=== PATIENT | female | born 1955 | race American Indian/Alaskan Native ===

== ENCOUNTER → 2020-10-14 08:30 | Outpatient (CLI) | payer OTHER, SELFPAY ==
[2020-10-14 09:44] LABS: Add Manual Diff / Slide Review NO; Basophils Absolute Auto 0 /uL (0-100); Basophils Percent Auto 0.5 % (0-2); Eosinophils Absolute Auto 100 /uL (0-450); Eosinophils Percent Auto 2.2 % (2-4); Hematocrit 45.2 % (36-46); Hemoglobin 15.3 g/dL (12.0-16.0); Lymphocytes Absolute Auto 1200 /uL (1100-4500); Lymphocytes Percent Auto 24.4 % (25-40); Mean Corpuscular HGB Conc 33.9 % (30-36); Mean Corpuscular Hemoglobin 30.4 PG (26-34); Mean Corpuscular Volume 89.7 fL (80-100); Monocytes Absolute Auto 400 /uL (0-900); Monocytes Percent Auto 7.4 % (3-14); Neutrophils Absolute Auto 3300 /uL (1500-7000); Neutrophils Percent Auto 65.5 % (50-75); Platelet Count 233 X10^3/uL (150-400); Red Blood Cell Count 5.04 X10^6/uL (4.0-5.2); Red Cell Distribution Width 12.8 % (11.6-14.8); White Blood Cell Count 5.1 X10^3/uL (4.5-11.0)
[2020-10-14 09:59] LABS: Hemoglobin A1C% w Est Avg Glu 5.7 % (4.0-6.0)
[2020-10-14 10:33] LABS: BUN Creatinine Ratio 33.3 (6-22); Blood Urea Nitrogen 20 mg/dL (7-17); Calcium 9.5 mg/dL (8.4-10.2); Carbon Dioxide 28 mmol/L (22-32); Chloride 107 mmol/L (98-107); Cholesterol 214 mg/dL (140-199); Estimated Glomerular Filt Rate > 60.0 mL/min (>60); Glucose 110 mg/dL (80-110); HDL Cholesterol 52 mg/dL (40-60); HEMOLYSIS < 15 (0-50); LDL Cholesterol Calculated 113 mg/dL (<100); Potassium 4.2 mmol/L (3.4-5.1); Sodium 139 mmol/L (137-145); Triglycerides 247 mg/dL (35-150)
== END ==
PROVIDERS: PCP Family Medicine; Referring Provider Family Medicine; Visit Provider Family Medicine
DX: E78.5 Hyperlipidemia, unspecified (principal); I10 Essential (primary) hypertension; R73.03 Prediabetes
CPT/HCPCS: 36415; 80048; 80061; 83036; 85025

== ENCOUNTER → 2020-12-21 15:32 | Outpatient (CLI) | payer OTHER, SELFPAY ==
--- NOTE | 2020-12-21 15:33 | DI.US.S_ITS ---
PROCEDURE: US PERIPH VENOUS LOW EXTREM RT INDICATIONS: RIGHT LOWER LEG SWELLING AND PAIN TECHNIQUE: Real-time imaging, as well as color and pulse Doppler interrogation, were performed of the lower extremity deep veins from the inguinal ligament to the popliteal fossa. COMPARISON: None. FINDINGS: The common femoral, femoral and popliteal veins are normally compressible, and free of intraluminal thrombus. Color and pulse Doppler demonstrate normal phasic intraluminal flow. There is normal augmentation response to distal compression maneuver. IMPRESSION: Negative for deep venous thrombosis. Dictated by: Calvin Hubbard M.D. on 12/21/2020 at 15:32 Approved by: Calvin Hubbard M.D. on 12/21/2020 at 15:32
== END ==
PROVIDERS: PCP Family Medicine; Referring Provider Family Medicine; Visit Provider Family Medicine
DX: M79.661 Pain in right lower leg (principal); R60.0 Localized edema
CPT/HCPCS: 93971

== ENCOUNTER → 2021-02-03 10:38 | Outpatient (CLI) | payer OTHER, SELFPAY ==
--- NOTE | 2021-02-03 | DI.MG.S_ITS ---
BILATERAL DIGITAL SCREENING MAMMOGRAM 3D/2D WITH CAD: 02/03/2021 CLINICAL: Routine screening. Comparison is made to exams dated: 02/08/2019 mammogram, 01/22/2019 mammogram, 11/23/2017 mammogram, and 04/25/2017 mammogram - outside location. The tissue of both breasts is predominantly fatty. Current study was also evaluated with a Computer Aided Detection (CAD) system. There is a stable benign focal asymmetry in both breasts. There also are stable benign calcifications in both breasts. No significant masses, calcifications, or other findings are seen in either breast. There has been no significant interval change. IMPRESSION: BENIGN There is no mammographic evidence of malignancy. A 1 year screening mammogram is recommended. This exam was interpreted at Station ID: [id number]. NOTE: For mammograms, a report in lay terms will be sent to the patient. Approximately 15% of breast malignancies will not be visualized mammographically. In the management of a palpable breast mass, a negative mammogram must not discourage biopsy of a clinically suspicious lesion. Electronically Signed By: Rolando Smith acr/penrad:02/03/2021 11:32:14 letter sent: Normal Exam ACR BI-RADS Category 2: Benign Finding(s) 3342F
== END ==
PROVIDERS: PCP Family Medicine; Referring Provider Family Medicine; Visit Provider Family Medicine
DX: Z12.31 Encounter for screening mammogram for malignant neoplasm of breast (principal)
CPT/HCPCS: 77063; 77067

== ENCOUNTER → 2021-05-11 09:13 | Outpatient (CLI) | payer OTHER, SELFPAY ==
[2021-05-11 10:17] LABS: Cholesterol 205 mg/dL (140-199); HDL Cholesterol 49 mg/dL (40-60); LDL Cholesterol Calculated 116 mg/dL (<100); Triglycerides 201 mg/dL (35-150)
== END ==
PROVIDERS: PCP Family Medicine; Referring Provider Family Medicine; Visit Provider Family Medicine
DX: E78.5 Hyperlipidemia, unspecified (principal)
CPT/HCPCS: 36415; 80061

== ENCOUNTER 2021-07-10 08:00 | Observation (INO) | payer OTHER, SELFPAY ==
[2021-07-10] VITALS (22 sets, daily range): BP systolic 113–233; BP diastolic 59–106; PULSE 50–71; RESP 10–25; TEMP 36.2–37.3; O2SAT 95–100
--- NOTE | 2021-07-10 | DI.RAD.S_ITS ---
PROCEDURE: XR ABDOMEN 1V INDICATIONS: RIGHT STENT PLACEMENT TECHNIQUE: One view of the abdomen acquired. COMPARISON: [facility], CT, CT KIDNEY URETER BLADDER (KUB), 07/10/2021, 8:39. FINDINGS/IMPRESSION: Single spot fluoro view demonstrates a nephroureteral stent overlying the expected location of the right renal shadow. Dictated by: Omar Schaefer D.O. on 07/10/2021 at 12:16 Approved by: Omar Schaefer D.O. on 07/10/2021 at 12:19
[2021-07-10] MEDS: ONDANSETRON 4 MG/2 ML INJ IV ×3 (08:22→13:36)
--- NOTE | 2021-07-10 08:27 | DI.CT.S_ITS ---
PROCEDURE: CT KIDNEY URETER BLADDER (KUB) INDICATIONS: rt flank pain TECHNIQUE: Axial sections were acquired from the lung bases to the pubic symphysis. Coronal and sagittal reformats were performed. For radiation dose reduction, the following was used: automated exposure control, adjustment of mA and/or kV according to patient size. COMPARISON: None. FINDINGS: Image quality: Excellent. Lung bases: Unremarkable. Heart: No significant findings. URINARY: Right Kidney: There is perinephric inflammation. Moderate hydroureteronephrosis. Right Ureter: Moderate dilation. There is a 6 millimeter stone within the mid right ureter. Left Kidney: Unremarkable Left Ureter: No hydroureter. Bladder: Normal wall thickness. No stones. ABDOMEN: Liver: Unremarkable. Gallbladder: Unremarkable. Biliary ducts: Unremarkable. Pancreas: Unremarkable. Spleen: Unremarkable. Small splenule. Adrenal Glands: Unremarkable. Stomach and Bowel: Stomach, small bowel loops, and colon are unremarkable. Peritoneum: No abnormal intraperitoneal fluid. No free air. Ventral Wall: No hernia. Abdominal Nodes: No enlarged retroperitoneal or mesenteric lymph nodes. Vessels: Aorta and inferior vena cava are normal in size. PELVIS: Pelvic Organs: Unremarkable. Pelvic Nodes: Unremarkable. Miscellaneous: No inguinal hernias are seen. Bones: Multilevel degenerative changes of the spine and mild degenerative changes of the hips. Complete intervertebral disc space loss of L2 on L3. Grade 1 anterolisthesis of L4 on L5 and retrolisthesis of L5 on S1. IMPRESSION: Right-sided obstructing 6 millimeter calcification within the mid right ureter with resultant moderate hydroureteronephrosis and perinephric inflammation. Dictated by: Omar Schaefer D.O. on 07/10/2021 at 8:33 Approved by: Omar Schaefer D.O. on 07/10/2021 at 8:39
--- NOTE | 2021-07-10 08:28 | ED.ABDPAIN ---
HPI - Abdominal Pain General Chief Complaint: Abdominal Pain Stated Complaint: poss kidney stones vomitting Time Seen by Provider: 07/10/21 08:22 History of Present Illness HPI narrative: Patient here with . Complains of right abdominal and right flank pain. Patient states feels like another kidney stone. Started last night around 11:30 a.m.. She was hoping it would pass. History kidney stone surgeries in the past. Has not had a kidney stone in over a decade. No hematuria. No fever chills. Has nausea and vomiting. Has urinary frequency. Related Data Home Medications Medication Instructions Recorded Confirmed clobetasol 0.05 % topical cream 1 applictn TOP DAILY 06/24/20 12/16/20 hydrocortisone 2.5 % topical cream 1 applictn TOP BID PRN 06/24/20 12/16/20 ibuprofen 200 mg capsule 200 mg PO Q6H PRN 06/24/20 12/16/20 metronidazole 0.75 % topical cream 1 applictn TOP DAILY 06/24/20 12/16/20 multivitamin PO 06/24/20 12/16/20 nystatin 100,000 unit/gram topical 1 applictn TOP DAILY 06/24/20 12/16/20 powder (Nyamyc) potassium citrate PO 06/24/20 12/16/20 Previous Rx's Medication Instructions Recorded hydrochlorothiazide 25 mg tablet 25 mg PO DAILY #90 tab 01/05/21 ciprofloxacin HCl 250 mg tablet 250 mg PO BID #20 tab 07/10/21 tramadol 50 mg tablet 50 mg PO Q6H PRN #20 tab 07/10/21 Allergies Allergy/AdvReac Type Severity Reaction Status Date / Time codeine Allergy Mild Verified 07/10/21 08:36 latex Allergy Mild Verified 07/10/21 08:36 Latex, Natural Rubber Allergy Mild Verified 07/10/21 08:36 metformin [From Glucophage] Allergy Mild Verified 07/10/21 08:36 simvastatin Allergy Mild Verified 07/10/21 08:36 Sulfa (Sulfonamide Allergy Mild Verified 07/10/21 08:36 Antibiotics) weed pollen Allergy Mild Verified 07/10/21 08:36 morphine AdvReac Mild Vomiting Verified 07/10/21 08:36 Review of Systems Review of Systems Narrative: GENERAL: Denies chills, fatigue, malaise, fever, sweats. HEENT: Denies sinus pain, ear pain, sore throat RESPIRATORY: Denies dyspnea, cough CARDIOVASCULAR: Denies chest pain, palpitations GASTROINTESTINAL: Positive nausea, vomiting, positive flank and abdominal pain : Denies dysuria, positive frequency, denies hematuria MUSCULOSKELETAL: denies muscle or bony pain SKIN: Denies rash, skin lesions NEUROLOGIC: Denies weakness, numbness ROS Unobtainable: All systems reviewed & are unremarkable except as noted in HPI and below Patient History Medical History Chicken pox Chronic pain of right knee Eczema (~2009) Edema of left lower extremity Foot pain (~2012) Fractures (~2007) Hay fever (~2009) Hemorrhoid (~2007) History of recurrent ear infection Hyperlipidemia Hypertension (~2012) Iliotibial band syndrome, right leg Kidney stones (~2012) Measles Osteoarthritis Pain in right winn Paronychia Partial blindness Pelvic somatic dysfunction Pre-diabetes Restless leg syndrome Rosacea (~2006) Shingles Shoulder pain (~2011) Somatic dysfunction of lower extremity Staph infection (~2007) Systolic murmur (~11/2009) Surgical History Anesthesia History of foot surgery History of hand surgery (~2007) History of hysterectomy Family History Father Diabetes mellitus History of heart disease Hyperlipidemia Hypertension Mother No problems noted. Grandfather Gout Family/Other Mental health problem Social History household members: spouse Smoking Status: Never smoker alcohol intake: current substance use type: does not use Smoking Status: Never smoker Exam Narrative Exam Narrative: GENERAL: in no distress, not toxic not dyspneic HEAD: Normocephalic. EYES: Pupils equal round NECK: Trachea midline. CARDIOVASCULAR: Regular rate and rhythm without murmurs RESPIRATORY: Clear to auscultation. Breath sounds equal bilaterally. No wheezes, rales, or rhonchi. GASTROINTESTINAL: Abdomen soft, non-tender EXTREMITIES: No gross deformities. BACK: No flank tenderness. NEURO: AOx4. SKIN: Warm and dry PSYCH: Not anxious, is cooperative Initial Vital Signs Initial Vital Signs: Vital Signs Temperature 97.9 F 07/10/21 08:10 Pulse Rate 66 10/16/21 08:10 Respiratory Rate 25 H 07/10/21 08:10 Blood Pressure 233/106 H 07/10/21 08:10 Pulse Oximetry 100 07/10/21 08:10 Course Course Course Narrative: No new issues during course of stay. Pain controlled Decision to Admit Date: 07/10/21 Decision to Admit time: 10:09 Orders Ordered: ED Orders 07/10/21 08:05 Urine Culture Stat Urine Microscopic Stat 07/10/21 08:20 Complete Blood Count AUTO DIFF Stat Comprehensive Metabolic Panel Stat Lipase Stat 07/10/21 08:27 CT kidney ureter bladder (KUB) Stat 07/10/21 10:00 COVID19 -Nasal swab/Pre-Proc Stat Famotidine (Famotidine 20 Mg/2 Ml Vial) 20 mg IV NOW [facility] Last Admin: 07/10/21 11:44 Dose: 20 mg Documented by: JOSE F Lactated Ringer's (Lactated Ringers) 1,000 mls @ 42 mls/hr IV CONT [facility] Last Infusion: 07/10/21 14:25 Dose: 0 mls/hr Documented by: Infusion: 07/10/21 11:57 Dose: 0 mls/hr Documented by: JOSE F Admin: 07/10/21 11:37 Dose: 42 mls/hr Documented by: JOSE F Lactated Ringer's (Lactated Ringers) 1,000 mls @ 120 mls/hr IV [facility] Last Admin: 07/10/21 14:25 Dose: 120 mls/hr Documented by: MATT Ondansetron HCl (Ondansetron 4 Mg/2 Ml Inj) 4 mg IV NOW PRN PRN Reason: Nausea And Vomiting Last Admin: 07/10/21 13:36 Dose: 4 mg Documented by: MATT Discontinued Medications Belladonna Alkaloids/Opium (Belladonna/Opium Suppositories) 1 each AL NOW ONE Stop: 07/10/21 12:31 Last Admin: 07/10/21 12:31 Dose: 1 each Documented by: CHARU Hydromorphone HCl (Hydromorphone 1 Mg Inj) 0.5 mg IV NOW ONE Stop: 07/10/21 08:28 Last Admin: 07/10/21 08:40 Dose: 0.5 mg Documented by: JOSE F Hydromorphone HCl (Hydromorphone 0.5 Mg Inj) 0.5 mg IV NOW ONE Stop: 07/10/21 10:51 Last Admin: 07/10/21 10:57 Dose: 0.5 mg Documented by: JOSE F Sodium Chloride (Normal Saline 0.9%) 1,000 mls @ 1,000 mls/hr IV BOLUS ONE Stop: 07/10/21 09:26 Last Infusion: 07/10/21 10:13 Dose: 0 mls/hr Documented by: JOSE F Admin: 07/10/21 08:41 Dose: 1,000 mls/hr Documented by: JOSE F Ceftriaxone Sodium 2,000 mg/ (Sodium Chloride) 100 mls @ 200 mls/hr IV NOW ONE Stop: 07/10/21 10:09 Last Infusion: 07/10/21 10:57 Dose: 0 mls/hr Documented by: JOSE F Admin: 07/10/21 10:18 Dose: 200 mls/hr Documented by: JOSE F Metoclopramide HCl (Metoclopramide 10 Mg/2 Ml Inj) 10 mg IV NOW ONE Stop: 07/10/21 11:02 Last Admin: 07/10/21 11:37 Dose: 10 mg Documented by: JOSE F Metoclopramide HCl (Metoclopramide 10 Mg/2 Ml Inj) 10 mg IV NOW ONE Stop: 07/10/21 14:24 Ondansetron HCl (Ondansetron 4 Mg/2 Ml Inj) 4 mg IV NOW ONE Stop: 07/10/21 08:23 Last Admin: 07/10/21 08:22 Dose: 4 mg Documented by: JOSE F Ondansetron HCl (Ondansetron 4 Mg/2 Ml Inj) 4 mg IV NOW ONE Stop: 07/10/21 10:51 Last Admin: 07/10/21 10:57 Dose: 4 mg Documented by: JOSE F Promethazine HCl (Promethazine 25 Mg Tablet) 25 mg PO NOW ONE Stop: 07/10/21 13:33 Last Admin: 07/10/21 13:49 Dose: 25 mg Documented by: MATT Scopolamine (Scopolamine 1 Patch) 1 patch TOP NOW ONE Stop: 07/10/21 14:24 Reevaluation(s) Reevaluation #1: Patient and understand need to admit for surgery today. Has not eaten since yesterday. Time: 10:09 Reevaluation #2: Dr. Cordero and surgical team here to take patient to the OR, blood pressure improved at time transfer to the OR, blood pressure elevation when pain elevate. Consultations Consultation #1: Spoke with Dr. Cordero, urology. He will take patient to for today. Time: 10:00 Vital Signs Vital signs: Vital Signs - 8 hr 07/10/21 08:10 07/10/21 08:37 07/10/21 08:38 Temperature 97.9 F Pulse Rate 66 62 62 Respiratory Rate 25 H 18 Blood Pressure 233/106 H 167/77 H Pulse Oximetry 100 98 97 07/10/21 09:02 07/10/21 09:30 07/10/21 09:37 Temperature Pulse Rate 70 63 63 Respiratory Rate 15 Blood Pressure 137/71 Pulse Oximetry 96 96 97 07/10/21 10:00 07/10/21 10:30 07/10/21 11:00 Temperature Pulse Rate 58 L 63 60 Respiratory Rate 16 Blood Pressure 140/67 Pulse Oximetry 95 97 98 07/10/21 11:05 07/10/21 11:30 Temperature Pulse Rate 65 71 Respiratory Rate 17 18 Blood Pressure 161/77 H 172/81 H Pulse Oximetry 95 95 MDM - Abdominal Pain Differential Diagnosis Differential diagnosis: Likely abdominal pain, acute appendicitis, calculus of kidney and small bowel obstruction Lab Data Result diagrams: 07/10/21 08:20 07/10/21 08:20 Labs: Lab Results 07/10/21 07/10/21 07/10/21 Range/Units 08:05 08:20 08:20 WBC 13.1 H (4.5-11.0) X10^3/uL RBC 5.30 H (4.0-5.2) X10^6/uL Hgb 15.7 (12.0-16.0) g/dL Hct 47.3 H (36-46) % MCV 89.2 (80-100) fL MCH 29.7 (26-34) PG MCHC 33.3 (30-36) % RDW 13.0 (11.6-14.8) % Plt Count 274 (150-400) X10^3/uL Neut % (Auto) 86.5 H (50-75) % Lymph % (Auto) 9.4 L (25-40) % [place] % (Auto) 3.8 (3-14) % Eos % (Auto) 0.1 L (2-4) % Baso % (Auto) 0.2 (0-2) % Neut # (Auto) 03480 H (7654-9236) /uL Lymph # (Auto) 1200 (8793-9604) /uL [place] # (Auto) 500 (0-900) /uL Eos # (Auto) 0 (0-450) /uL Baso # (Auto) 0 (0-100) /uL Sodium 140 (137-145) mmol/L Potassium 4.1 (3.4-5.1) mmol/L Chloride 105 (98-107) mmol/L Carbon Dioxide 26 (22-32) mmol/L BUN 20 H (7-17) mg/dL Creatinine 0.59 (0.52-1.04) mg/dL Estimated GFR > 60.0 (>60) mL/min BUN/Creatinine Ratio 33.9 H (6-22) Glucose 143 H (80-110) mg/dL Calcium 9.9 (8.4-10.2) mg/dL Total Bilirubin 0.6 (0.2-1.3) mg/dL AST 36 (14-36) IU/L ALT 24 (<35) IU/L Alkaline Phosphatase 79 (38-126) U/L Total Protein 7.2 (6.3-8.2) g/dL Albumin 4.8 (3.5-5.0) g/dL Globulin 2.4 (1.7-4.1) g/dL Albumin/Globulin Ratio 2.0 (1.0-2.8) Lipase 96 (23-300) U/L Urine RBC 30-100/hpf H (0-5/HPF) Urine WBC 30-100/hpf H (0-5/HPF) Ur Squamous Epith Cells 1-5 /hpf (0-5/HPF) Urine Bacteria Moderate (10-30) H (None) Ur Culture Indicated? Specimen cultured SARS-CoV-2 (PCR) (Negative) 07/10/21 Range/Units 10:00 WBC (4.5-11.0) X10^3/uL RBC (4.0-5.2) X10^6/uL Hgb (12.0-16.0) g/dL Hct (36-46) % MCV (80-100) fL MCH (26-34) PG MCHC (30-36) % RDW (11.6-14.8) % Plt Count (150-400) X10^3/uL Neut % (Auto) (50-75) % Lymph % (Auto) (25-40) % [place] % (Auto) (3-14) % Eos % (Auto) (2-4) % Baso % (Auto) (0-2) % Neut # (Auto) (2581-3921) /uL Lymph # (Auto) (2682-9225) /uL [place] # (Auto) (0-900) /uL Eos # (Auto) (0-450) /uL Baso # (Auto) (0-100) /uL Sodium (137-145) mmol/L Potassium (3.4-5.1) mmol/L Chloride (98-107) mmol/L Carbon Dioxide (22-32) mmol/L BUN (7-17) mg/dL Creatinine (0.52-1.04) mg/dL Estimated GFR (>60) mL/min BUN/Creatinine Ratio (6-22) Glucose (80-110) mg/dL Calcium (8.4-10.2) mg/dL Total Bilirubin (0.2-1.3) mg/dL AST (14-36) IU/L ALT (<35) IU/L Alkaline Phosphatase (38-126) U/L Total Protein (6.3-8.2) g/dL Albumin (3.5-5.0) g/dL Globulin (1.7-4.1) g/dL Albumin/Globulin Ratio (1.0-2.8) Lipase (23-300) U/L Urine RBC (0-5/HPF) Urine WBC (0-5/HPF) Ur Squamous Epith Cells (0-5/HPF) Urine Bacteria (None) Ur Culture Indicated? SARS-CoV-2 (PCR) Negative (Negative) Point of care testing: Urine Dip Bedside Urine Glucose Negative Bedside Urine Bilirubin - Negative Bedside Urine Ketone - Negative Urine Specific [place] 1.015 Bedside Urine Occult Blood +++ Bedside Urine pH 6.5 Bedside Urine Protein + 30 Bedside Urine Urobilinogen - Negative Bedside Urine Nitrite - Negative Bedside Urine Leukocytes ++ [address] scan - abdomen/pelvis: Radiologist's Impression: [address] [address] [address] Scan Report Signed Patient: Pilar Gale MR#: [id number] : 1955 Acct:[id number] Age/Sex: 65 / F Date of Service: 07/10/21 Loc: ED Accession Number: [id number] ?? Procedure: CT kidney ureter bladder (KUB) Ordering Provider: Francis Jennings MD PROCEDURE:? CT KIDNEY URETER BLADDER (KUB) ? INDICATIONS:? rt flank pain ? TECHNIQUE:? Axial sections were acquired from the lung bases to the pubic symphysis.? Coronal and sagittal reformats were performed.? For radiation dose reduction, the following was used: ?automated exposure control, adjustment of mA and/or kV according to patient size.? ? COMPARISON:? None. ? FINDINGS:? Image quality:? Excellent.? ? Lung bases:? Unremarkable.? ? Heart:? No significant findings. ? URINARY: Right Kidney:? There is perinephric inflammation.? Moderate hydroureteronephrosis. Right Ureter:? Moderate dilation.? There is a 6 millimeter stone within the mid right ureter. ? Left Kidney:? Unremarkable Left Ureter:? No hydroureter. ? Bladder:? Normal wall thickness. No stones. ? ? ? ABDOMEN: Liver:? Unremarkable.? ? Gallbladder:? Unremarkable. ? Biliary ducts:? Unremarkable.? ? Pancreas:? Unremarkable.? ? Spleen:? Unremarkable. ? Small splenule.? Adrenal Glands:? Unremarkable.? ? ? Stomach and Bowel:? Stomach, small bowel loops, and colon are unremarkable.? Peritoneum:? No abnormal intraperitoneal fluid.? No free air.? ? Ventral Wall: ? No hernia.? Abdominal Nodes:? No enlarged retroperitoneal or mesenteric lymph nodes.? Vessels:? Aorta and inferior vena cava are normal in size.? ? PELVIS: Pelvic Organs:? Unremarkable.? ? Pelvic Nodes: Unremarkable. Miscellaneous: No inguinal hernias are seen. ? ? ? Bones:? Multilevel degenerative changes of the spine and mild degenerative changes of the hips.? Complete intervertebral disc space loss of L2 on L3.? Grade 1 anterolisthesis of L4 on L5 and retrolisthesis of L5 on S1. ? IMPRESSION:? ? Right-sided obstructing 6 millimeter calcification within the mid right ureter with resultant moderate hydroureteronephrosis and perinephric inflammation. ? ? ? Dictated by: Omar Schaefer D.O. on 07/10/2021 at 8:33 ? ? Approved by: Omar Schaefer D.O. on 07/10/2021 at 8:39 ? MDM Narrative Medical decision making narrative: Appropriate For admission. Likely stuck kidney stone. Ongoing for almost a week. Laboratory studies support possible infection as well. Reviewed with urologist and agrees will need surgery today Discharge Plan Departure Patient Disposition: Admitted to Surgery Clinical Impression: Calculus, ureteral Admit Date/Time: 07/10/21 11:59 Admit Provider: Gary Cordero
[2021-07-10 08:34] LABS: Add Manual Diff / Slide Review NO; Basophils Absolute Auto 0 /uL (0-100); Basophils Percent Auto 0.2 % (0-2); Eosinophils Absolute Auto 0 /uL (0-450); Eosinophils Percent Auto 0.1 % (2-4); Hematocrit 47.3 % (36-46); Hemoglobin 15.7 g/dL (12.0-16.0); Lymphocytes Absolute Auto 1200 /uL (1100-4500); Lymphocytes Percent Auto 9.4 % (25-40); Mean Corpuscular HGB Conc 33.3 % (30-36); Mean Corpuscular Hemoglobin 29.7 PG (26-34); Mean Corpuscular Volume 89.2 fL (80-100); Monocytes Absolute Auto 500 /uL (0-900); Monocytes Percent Auto 3.8 % (3-14); Neutrophils Absolute Auto 11300 /uL (1500-7000); Neutrophils Percent Auto 86.5 % (50-75); Platelet Count 274 X10^3/uL (150-400); White Blood Cell Count 13.1 X10^3/uL (4.5-11.0)
[2021-07-10] MEDS: HYDROMORPHONE 1 MG INJ 0.5 MG IV (08:40)
[2021-07-10] MEDS: SODIUM CHLORIDE 0.9% 1,000 ML 1000 ML IV (08:41)
[2021-07-10 08:46] LABS: Alanine Aminotransferase 24 IU/L (<35); Albumin 4.8 g/dL (3.5-5.0); Alkaline Phosphatase 79 U/L (38-126); Aspartate Aminotransferase 36 IU/L (14-36); BUN Creatinine Ratio 33.9 (6-22); Bilirubin Total 0.6 mg/dL (0.2-1.3); Blood Urea Nitrogen 20 mg/dL (7-17); Calcium 9.9 mg/dL (8.4-10.2); Carbon Dioxide 26 mmol/L (22-32); Chloride 105 mmol/L (98-107); Estimated Glomerular Filt Rate > 60.0 mL/min (>60); Globulin 2.4 g/dL (1.7-4.1); Glucose 143 mg/dL (80-110); HEMOLYSIS 18 (0-50); Lipase 96 U/L (23-300); Potassium 4.1 mmol/L (3.4-5.1); Sodium 140 mmol/L (137-145); Total Protein 7.2 g/dL (6.3-8.2)
[2021-07-10 09:32] LABS: RBC Urine 30-100/HPF (0-5/HPF); Squamous Epithelial Cell Urine 1-5 /HPF (0-5/HPF); WBC Urine 30-100/HPF (0-5/HPF)
[2021-07-10 09:33] LABS: Bacteria Urine Moderate (10-30); Culture Indicated Urine Specimen Cultured
[2021-07-10] MEDS: cefTRIAXone 2,000 MG in SODIUM CHLORIDE 0.9% 100 ML 200 ML IV (10:18)
[2021-07-10 10:36] LABS: COVID19 -Nasal RAPID Negative (Negative)
[2021-07-10] MEDS: HYDROMORPHONE 0.5 MG INJ IV (10:57)
[2021-07-10] MEDS: LACTATED RINGERS 1,000 ML 42 ML IV (11:37)
[2021-07-10] MEDS: METOCLOPRAMIDE 10 MG/2 ML INJ IV ×2 (11:37→14:45)
[2021-07-10] MEDS: FAMOTIDINE 20 MG/2 ML VIAL IV (11:44)
--- NOTE | 2021-07-10 12:02 | PM.HP.1 ---
History of Present Illness History of Present Illness Date Patient Seen: 07/10/21 Time Patient Seen: 12:03 Date of Onset of Symptoms: 07/09/21 Chief complaint: poss kidney stones vomitting Narrative: Pilar is a 65-year-old white female who is experiencing usual health until about 11:30 p.m. 07/09/2021. She was awakened with severe right-sided flank and abdominal pain associated with nausea and vomiting. She denies fever or dysuria. She has previous history of stone at age 41, and a stone at age 51. In both instances the stones were treated with laser lithotripsy. She also has a remote history of frequent UTIs, but none recently. She presented to the [facility] ED where evaluation including CT KUB revealed an obstructing 6 mm right mid ureteral calculus and proximal moderate hydronephrosis. Urinalysis indicated moderate bacteria, 1-5 epithelial cells and leuks. Patient History Medical History Chicken pox Chronic pain of right knee Eczema (~2009) Edema of left lower extremity Foot pain (~2012) Fractures (~2007) Hay fever (~2009) Hemorrhoid (~2007) History of recurrent ear infection Hyperlipidemia Hypertension (~2012) Iliotibial band syndrome, right leg Kidney stones (~2012) Measles Osteoarthritis Pain in right winn Paronychia Partial blindness Pelvic somatic dysfunction Pre-diabetes Restless leg syndrome Rosacea (~2006) Shingles Shoulder pain (~2011) Somatic dysfunction of lower extremity Staph infection (~2007) Systolic murmur (~11/2009) Surgical History Anesthesia History of foot surgery History of hand surgery (~2007) History of hysterectomy Family & Social History Family History Father Diabetes mellitus History of heart disease Hyperlipidemia Hypertension Mother No problems noted. Grandfather Gout Family/Other Mental health problem Safety & Behavioral: Feels Safe in Current Yes Environment Been Physically Hurt or No Threatened By a Person Tobacco & Substance use: Smoking Status Never smoker alcohol intake current alcohol intake frequency holiday/special occasion Substance Use Type does not use Meds Home Medications and Allergies Home Medications Medication Instructions Recorded Confirmed Type clobetasol 0.05 % topical cream 1 applictn TOP DAILY 06/24/20 12/16/20 History hydrocortisone 2.5 % topical cream 1 applictn TOP BID PRN 06/24/20 12/16/20 History ibuprofen 200 mg capsule 200 mg PO Q6H PRN 06/24/20 12/16/20 History metronidazole 0.75 % topical cream 1 applictn TOP DAILY 06/24/20 12/16/20 History multivitamin PO 06/24/20 12/16/20 History nystatin 100,000 unit/gram topical 1 applictn TOP DAILY 06/24/20 12/16/20 History powder ([facility] [place]) potassium citrate PO 06/24/20 12/16/20 History hydrochlorothiazide 25 mg tablet 25 mg PO DAILY #90 tab 01/05/21 Rx Allergies Allergy/AdvReac Type Severity Reaction Status Date / Time codeine Allergy Mild Verified 07/10/21 08:36 latex Allergy Mild Verified 07/10/21 08:36 Latex, Natural Rubber Allergy Mild Verified 07/10/21 08:36 metformin [From Glucophage] Allergy Mild Verified 07/10/21 08:36 simvastatin Allergy Mild Verified 07/10/21 08:36 Sulfa (Sulfonamide Allergy Mild Verified 07/10/21 08:36 Antibiotics) weed pollen Allergy Mild Verified 07/10/21 08:36 morphine AdvReac Mild Vomiting Verified 07/10/21 08:36 Review of Systems Review of Systems ROS: Yes All systems reviewed with the patient and are negative except as otherwise documented Exam Vital Signs (past 8 hours): - 07/10/21 08:10 07/10/21 08:37 07/10/21 08:38 Temperature 97.9 F Pulse Rate 66 62 62 Respiratory Rate 25 H 18 Blood Pressure 233/106 H 167/77 H Pulse Oximetry 100 98 97 07/10/21 09:02 07/10/21 09:30 07/10/21 09:37 Temperature Pulse Rate 70 63 63 Respiratory Rate 15 Blood Pressure 137/71 Pulse Oximetry 96 96 97 07/10/21 10:00 07/10/21 10:30 07/10/21 11:00 Temperature Pulse Rate 58 L 63 60 Respiratory Rate 16 Blood Pressure 140/67 Pulse Oximetry 95 97 98 07/10/21 11:05 07/10/21 11:30 Temperature Pulse Rate 65 71 Respiratory Rate 17 18 Blood Pressure 161/77 H 172/81 H Pulse Oximetry 95 95 Oxygen Delivery Method Room Air Narrative Exam Narrative: She is a well-developed and nourished woman and no current distress. Her face is flushed and she is mildly diaphoretic. Head/neck-sclera clear and pupils are round and equal bilaterally. No visible evidence of adenopathy or JVD. Chest-equal, clear, and unlabored expansion bilaterally. Heart-regular rhythm and rate. No abnormal tones appreciated. Objective Labs Result Diagrams: 07/10/21 08:20 07/10/21 08:20 Labs: Laboratory Results - last 24 hr 07/10/21 07/10/21 07/10/21 08:05 08:20 08:20 WBC 13.1 H RBC 5.30 H Hgb 15.7 Hct 47.3 H MCV 89.2 MCH 29.7 MCHC 33.3 RDW 13.0 Plt Count 274 Neut % (Auto) 86.5 H Lymph % (Auto) 9.4 L Newton % (Auto) 3.8 Eos % (Auto) 0.1 L Baso % (Auto) 0.2 Neut # (Auto) 57503 H Lymph # (Auto) 1200 Newton # (Auto) 500 Eos # (Auto) 0 Baso # (Auto) 0 Sodium 140 Potassium 4.1 Chloride 105 Carbon Dioxide 26 BUN 20 H Creatinine 0.59 Estimated GFR > 60.0 BUN/Creatinine Ratio 33.9 H Glucose 143 H Calcium 9.9 Total Bilirubin 0.6 AST 36 ALT 24 Alkaline Phosphatase 79 Total Protein 7.2 Albumin 4.8 Globulin 2.4 Albumin/Globulin Ratio 2.0 Lipase 96 Urine RBC 30-100/hpf H Urine WBC 30-100/hpf H Ur Squamous Epith Cells 1-5 /hpf Urine Bacteria Moderate (10-30) H Ur Culture Indicated? Specimen cultured SARS-CoV-2 (PCR) 07/10/21 10:00 WBC RBC Hgb Hct MCV MCH MCHC RDW Plt Count Neut % (Auto) Lymph % (Auto) Newton % (Auto) Eos % (Auto) Baso % (Auto) Neut # (Auto) Lymph # (Auto) Newton # (Auto) Eos # (Auto) Baso # (Auto) Sodium Potassium Chloride Carbon Dioxide BUN Creatinine Estimated GFR BUN/Creatinine Ratio Glucose Calcium Total Bilirubin AST ALT Alkaline Phosphatase Total Protein Albumin Globulin Albumin/Globulin Ratio Lipase Urine RBC Urine WBC Ur Squamous Epith Cells Urine Bacteria Ur Culture Indicated? SARS-CoV-2 (PCR) Negative Assessment & Plan Assessment & Plan narrative: Assessment: 1. Obstructing 6 mm right mid ureteral calculus. 2. UTI/right pyelonephritis. 3. History of recurrent calcium nephrolithiasis. Plan: 1. Discussion, informed consent, and to operating room for urgent cystoscopy/right ureteral stone manipulation without removal/placement right ureteral stent. Time Spent With Patient Critical Care time: I spent a total of [] minutes of critical care time on this patient's care today; this time is exclusive of procedural time.
[2021-07-10] MEDS: BELLADONNA/OPIUM SUPPOSITORIES 1 EACH PR (12:31)
--- NOTE | 2021-07-10 12:35 | P.OP_ITS ---
Operative Date/Time/Diagnoses Date of procedure: 07/10/21 Time of procedure: 12:36 Pre-op diagnosis: 1. Obstructing 6 mm right mid ureteral calculus. 2. UTI/right pyelonephritis. Post-op diagnosis: same Procedure & Clinicians Procedure: 1. Cystoscopy/placement right ureteral stent. 2. Cystoscopy/right ureteral stone manipulation without removal. Same procedure as scheduled: Yes Indications: 1. Obstructing 6 mm right mid ureteral calculus. 2. UTI/right pyelonephritis. Surgeon: Gary Cordero Click Yes if Unassisted: Yes Anesthesia Type: General Operative Notes Findings: 1. Normal caliber and position of urethra. 2. Hyperemic bladder urothelium and turbid urine. Closure Type: not applicable Specimen(s): none sent Applied: other (Seven Grenadian by 22-32 cm multi-length stent) Blood products transfused: none Procedure in detail: Patient was positioned supine and was administered general anesthesia. She was then repositioned semi lithotomy and the lower abdomen, genitalia, and groin were then prepped and draped in sterile fashion. The 22 Grenadian panendoscope was then passed of lower urinary tract with the findings as described above. A 0.35 hybrid guidewire was then selected and was advanced through the working port of the panendoscope. It was then advanced in the right collecting system under direct and fluoroscopic guidance. Next, a 7 Grenadian by 22-32 cm multi-length stent was select. This was then advanced over the hybrid guidewire again under direct and fluoroscopic guidance. No retrieval line was left attached. The patient was then repositioned supine, awakened, and transferred to a [place] for transport to PACU. Complications: none Post-operative Condition: stable Disposition: PACU Plan for aftercare: Discharge home
--- NOTE | 2021-07-10 12:44 | SUR.PHASEI ---
Patient to PACU after general anesth with Dr Castillo and Zaira OCHOA. Pt breathing unassisted on room air.
--- NOTE | 2021-07-10 12:49 | SUR.OPER ---
Lithotomy on padded OR bed, head on pillow, arms secured on padded arm boards at <90 degrees abduction. Legs secured in padded yellow fins stirrups.
--- NOTE | 2021-07-10 13:39 | SUR.PHASEI ---
Dr Castillo at bedside, updated on pt vomited, see orders for promethazine.
[2021-07-10] MEDS: PROMETHAZINE 25 MG TABLET PO (13:49)
--- NOTE | 2021-07-10 14:23 | SUR.PHASEII ---
Discussed with Dr Castillo patient contnueed nuasea and small emesis after oral Phenergan. See new orders for Guzman Decker.
[2021-07-10] MEDS: LACTATED RINGERS 1,000 ML 120 ML IV (14:25)
[2021-07-10] MEDS: SCOPOLAMINE 1 PATCH TOP (14:44)
--- NOTE | 2021-07-10 15:07 | SUR.PHASEII ---
Patient declined extended outpatient for nausea and vomiting and requested discharge to home. VS stable, standing steady at bedside. Was able to rest for 20 minutes prior to getting up without nausea.
== END 2021-07-10 15:03 | disposition home or self-care (01) ==
LOC: ED 11:42 → AC 12:44
PROVIDERS: Admitting Provider Specialist; Emergency Provider Emergency Medicine; PCP Family Medicine; Referring Provider Emergency Medicine; Visit Provider Specialist
PROC: (CPT 52330; principal; 2021-07-10 12:00)
DX: N20.1 Calculus of ureter (principal); N39.0 Urinary tract infection, site not specified; I10 Essential (primary) hypertension; E78.5 Hyperlipidemia, unspecified; R73.03 Prediabetes; Z87.442 Personal history of urinary calculi; Z20.822 Contact with and (suspected) exposure to COVID-19
CPT/HCPCS: 52330; 52332; 36415; 74018; 74176; 76000; 80053; 81003; 81015; 83690; 85025; 87086; 87635; 96361; 96365; 96375; 96376; 99284; C9803; G0378; J0330; J0696; J1100; J1170; J2250; J2405; J2704; J2765; J3010

== ENCOUNTER → 2021-07-17 09:56 | Outpatient (CLI) | payer OTHER, SELFPAY ==
--- NOTE | 2021-07-17 09:58 | DI.RAD.S_ITS ---
PROCEDURE: XR KUB INDICATIONS: kidney stones TECHNIQUE: One view of the abdomen acquired. COMPARISON: [facility], CT, CT KIDNEY URETER BLADDER (KUB), 07/10/2021, 8:39. [facility], CR, XR ABDOMEN 1V, 07/10/2021, 12:35. FINDINGS: Surgical changes and devices: There is a right-sided double-J stent, with the ends in the expected locations. Pelvic staple lines are seen. Bowel: Bowel gas pattern is normal. Soft tissues: No suspicious abdominal calcifications. The previously seen right ureteral stone is not seen on these images. Visualized solid organ contours appear normal in size. Bones: No suspicious bony lesions. Age-appropriate bony degenerative changes are seen. IMPRESSION: Right-sided double-J stent. Dictated by: Calvin Hubbard M.D. on 07/17/2021 at 10:05 Approved by: Calvin Hubbard M.D. on 07/17/2021 at 10:07
== END ==
PROVIDERS: PCP Family Medicine; Referring Provider Specialist; Visit Provider Specialist
DX: N20.1 Calculus of ureter (principal); Z96.0 Presence of urogenital implants
CPT/HCPCS: 74018

== ENCOUNTER → 2021-07-20 11:26 | Outpatient (CLI) | payer OTHER, SELFPAY | PROVIDERS: PCP Family Medicine; Visit Provider Specialist | DX: R30.0 Dysuria (principal); N20.1 Calculus of ureter; Z96.0 Presence of urogenital implants | CPT/HCPCS: 81002; 87086 ==

== ENCOUNTER → 2021-07-21 10:57 | Outpatient (CLI) | payer OTHER, SELFPAY ==
[2021-07-21 13:57] LABS: COVID19 -Nasal RAPID Negative (Negative)
== END ==
PROVIDERS: PCP Family Medicine; Visit Provider Specialist
DX: Z20.822 Contact with and (suspected) exposure to COVID-19 (principal)
CPT/HCPCS: 87635; C9803

== ENCOUNTER 2021-07-23 11:53 | Day surgery (SDC) | payer OTHER, SELFPAY ==
[2021-07-21 09:19] VITALS: BMI 28.9
[2021-07-23] VITALS (9 sets, daily range): BP systolic 97–150; BP diastolic 64–102; PULSE 47–58; RESP 10–16; TEMP 36.4–36.8; O2SAT 96–99; BMI 28.9
[2021-07-23] MEDS: LACTATED RINGERS 1,000 ML 42 ML IV (12:31)
--- NOTE | 2021-07-23 12:49 | PM.PREOP ---
Pre-operative Note Interval Note History & Physical reviewed/Exam performed by Physician: Yes Changes to H&P: No
[2021-07-23] MEDS: ACETAMINOPHEN IV 1,000 MG/100 ML VIAL 400 MG IV (12:51)
[2021-07-23] MEDS: CEFAZOLIN 1 GM VIAL 2 GM IV (13:45)
[2021-07-23] MEDS: BELLADONNA/OPIUM SUPPOSITORIES 1 EACH PR (14:11)
--- NOTE | 2021-07-23 14:29 | PM.OP.1 ---
Operative Date/Time/Diagnoses Date of procedure: 07/23/21 Time of procedure: 14:29 Pre-op diagnosis: Obstructing 6 mm mid to distal right ureteral calculus Retained right ureteral stent Post-op diagnosis: same Procedure & Clinicians Procedure: 1. Cystoscopy/right ureteroscopic laser lithotripsy. 2. Cystoscopy/right ureteral stent exchange (6 Cameroonian by 22-32 cm multi-length. Same procedure as scheduled: Yes Indications: 1. Obstructing right mid to distal right ureteral calculus. 2. Retained right ureteral stent. Surgeon: Gary Cordero Click Yes if Unassisted: Yes Anesthesia Type: General Operative Notes Findings: 1. Urethra-small caruncle at meatus. Otherwise normal. 2. Bladder-mild hyperemia as expected around the vicinity of the right ureteral orifice and trigone. Intact indwelling retained right ureteral stent. 3. Right ureter-the index calculus was identified in or very near expected location as indicated and preoperative imaging. It was somewhat discoid with a mulberry morphology. Closure Type: not applicable Specimen(s): none sent Applied: other (Six Cameroonian by 22-32 cm multi-length stent) Estimated Blood Loss (mL): 0 Blood products transfused: none Procedure in detail: The patient was positioned supine and administered general anesthesia. She was then repositioned semi lithotomy and the lower abdomen, genitalia, and groin were then prepped and draped in sterile fashion. The 22 Cameroonian panendoscope was then passed lower urinary tract with findings as described above. The foreign body grasper was then utilized to engage the distal end of the stent and then the stent was withdrawn to the perineum. A 0.35 hybrid guidewire was then advanced through the lumen of the retained stent advanced proximally. The retained stent was then backloaded off the guidewire discarded. Next, semi rigid ureteral scope was prepared and was then advanced into the bladder and then into the right ureteral orifice with the findings as described above. A 200 micron laser fiber was then selected. All operating room personnel and patient were then fitted with laser safety eyewear. Lithotripsy was then commenced with excellent resultant stone fragmentation. The powder, Arthur, and tiny fragments were then cleared from the ureteral lumen by combined hydrostatic and mechanical agitation. Semi rigid ureteral scope was then removed the previously positioned safety wire was then front loaded into the panendoscope. The panendoscope was then advanced into the bladder. A 6 Cameroonian by 22-32 cm multi-length stent was then selected. It was then advanced over the guidewire under direct and fluoroscopic guidance. A retrieval line was left attached. The bladder was then drained completely and all instrumentation was removed. The retrieval line was trimmed at appropriate length. The patient was then repositioned supine, was awakened, and was then transferred to recovery in stable condition. Complications: none Post-operative Condition: stable Disposition: PACU Plan for aftercare: Discharge home.
== END 2021-07-23 15:47 | disposition home or self-care (01) ==
PROVIDERS: PCP Family Medicine; Referring Provider Specialist; Visit Provider Specialist
PROC: (CPT 52356; principal; 2021-07-23 12:45)
DX: N20.1 Calculus of ureter (principal); N36.2 Urethral caruncle; I10 Essential (primary) hypertension
CPT/HCPCS: 52356; 76000; 82962; C1771; J0131; J0690; J1100; J1885; J2250; J2405; J2704; J3010

== ENCOUNTER → 2021-09-22 11:49 | Outpatient (CLI) | payer OTHER, SELFPAY ==
[2021-09-22 13:15] LABS: Calcium 10.2 mg/dL (8.4-10.2); Uric Acid 5.3 mg/dL (2.5-6.2)
[2021-09-23 10:29] LABS: Calcium 10.1 mg/dL (8.7-10.3); Parathyroid Hormone, Intact 17 pg/mL (15-65)
== END ==
PROVIDERS: PCP Family Medicine; Referring Provider Specialist; Visit Provider Specialist
DX: N20.1 Calculus of ureter (principal)
CPT/HCPCS: 36415; 82310; 83970; 84550

== ENCOUNTER → 2021-10-23 11:56 | Outpatient (CLI) | payer OTHER, SELFPAY | PROVIDERS: PCP Family Medicine; Referring Provider Family Medicine; Visit Provider Family Medicine | DX: R10.31 Right lower quadrant pain (principal); R19.7 Diarrhea, unspecified | CPT/HCPCS: 87045; 87177; 87899 ==

== ENCOUNTER → 2022-02-01 09:08 | Outpatient (CLI) | payer OTHER, SELFPAY ==
--- NOTE | 2022-02-01 09:10 | DI.RAD.S_ITS ---
PROCEDURE: XR FOOT LT MIN 3V INDICATIONS: Left midfoot injury TECHNIQUE: 3 views of the foot were acquired. COMPARISON: None. FINDINGS: Bones: No fractures or dislocations. Bipartite lateral hallux sesamoid. Moderate osteophytosis and joint space loss about the midfoot. Calcaneal enthesophytes are seen Soft tissues: No tibiotalar joint effusion. IMPRESSION: No acute osseous abnormality. Dictated by: Naif Teixeira M.D. on 02/01/2022 at 10:20 Approved by: Naif Teixeira M.D. on 02/01/2022 at 10:23
== END ==
PROVIDERS: PCP Family Medicine; Referring Provider Physician Assistant; Visit Provider Physician Assistant
DX: S99.922A Unspecified injury of left foot, initial encounter (principal); X58.XXXA Exposure to other specified factors, initial encounter
CPT/HCPCS: 73630

== ENCOUNTER → 2022-02-04 07:48 | Outpatient (CLI) | payer OTHER, SELFPAY ==
--- NOTE | 2022-02-04 | DI.MG.S_ITS ---
BILATERAL DIGITAL SCREENING MAMMOGRAM 3D/2D WITH CAD: 02/04/2022 CLINICAL: Routine screening. Family history of breast cancer. Comparison is made to exams dated: 02/03/2021 mammogram - [facility], 02/08/2019 mammogram, 01/22/2019 mammogram, and 11/23/2017 mammogram - outside location. The tissue of both breasts is heterogeneously dense. This may lower the sensitivity of mammography. Current study was also evaluated with a Computer Aided Detection (CAD) system. There are stable benign calcifications in both breasts. No significant masses, calcifications, or other findings are seen in either breast. There has been no significant interval change. IMPRESSION: BENIGN There is no mammographic evidence of malignancy. A 1 year screening mammogram is recommended. This exam was interpreted at Station ID: [id number]. NOTE: For mammograms, a report in lay terms will be sent to the patient. Approximately 15% of breast malignancies will not be visualized mammographically. In the management of a palpable breast mass, a negative mammogram must not discourage biopsy of a clinically suspicious lesion. Electronically Signed By: Tello gilbert/gisela:02/04/2022 08:36:58 letter sent: Normal Exam ACR BI-RADS Category 2: Benign Finding(s) 3342F
== END ==
PROVIDERS: PCP Family Medicine; Referring Provider Family Medicine; Visit Provider Family Medicine
DX: Z12.31 Encounter for screening mammogram for malignant neoplasm of breast (principal); Z80.3 Family history of malignant neoplasm of breast
CPT/HCPCS: 77063; 77067

== ENCOUNTER → 2022-02-04 07:51 | Outpatient (CLI) | payer OTHER, SELFPAY ==
--- NOTE | 2022-02-04 07:52 | DI.RAD.S_ITS ---
PROCEDURE: XR KUB INDICATIONS: Kidney stone TECHNIQUE: One view of the abdomen acquired. COMPARISON: [facility], CT, CT KIDNEY URETER BLADDER (KUB), 07/10/2021, 8:39. [facility], CR, XR KUB, 07/17/2021, 9:55. FINDINGS: Surgical changes and devices: Stable lines projecting over the mid pelvis are stable.. Bowel: Bowel gas pattern is normal. Soft tissues: No suspicious abdominal calcifications. Multiple phleboliths project over the lower pelvis which are stable compared to prior exam Visualized solid organ contours appear normal in size. Bones: No suspicious bony lesions. IMPRESSION: No renal stone by plain film radiograph. Dictated by: Angie Delgado MD, PhD on 02/04/2022 at 14:23 Approved by: Angie Delgado MD, PhD on 02/04/2022 at 14:24
== END ==
PROVIDERS: PCP Family Medicine; Referring Provider Specialist; Visit Provider Specialist
DX: N20.1 Calculus of ureter (principal)
CPT/HCPCS: 74018

== ENCOUNTER → 2023-02-22 14:41 | Outpatient (CLI) | payer OTHER, SELFPAY ==
--- NOTE | 2023-02-22 | DI.MG.S_ITS ---
BILATERAL DIGITAL SCREENING MAMMOGRAM 3D/2D WITH CAD: 02/22/2023 CLINICAL: Routine screening. Family history of breast cancer. Comparison is made to exams dated: 02/04/2022 mammogram, 02/03/2021 mammogram - [facility], and 02/08/2019 mammogram - outside location. Both breasts are heterogeneously dense, which may obscure small masses (category c / 51-75% glandular tissue). Current study was also evaluated with a Computer Aided Detection (CAD) system. There is possible architectural distortion in the right breast at 10 o'clock posterior depth. No other significant masses, calcifications, or other findings are seen in either breast. IMPRESSION: INCOMPLETE: NEEDS ADDITIONAL IMAGING EVALUATION The possible architectural distortion in the right breast is indeterminate. Additional views with possible ultrasound are recommended. Based on the Tyrer Cuzick model (a risk assessment model) the patient's lifetime risk is 3.6% and her 10 year risk is 1.8%. According to the ACR, ACS, and NCCN guidelines, an annual breast MRI exam along with mammogram is recommended if the patient's lifetime risk is 20% or greater. This exam was interpreted at Station ID: [id number]. NOTE: For mammograms, a report in lay terms will be sent to the patient. Approximately 15% of breast malignancies will not be visualized mammographically. In the management of a palpable breast mass, a negative mammogram must not discourage biopsy of a clinically suspicious lesion. Electronically Signed By: Yojana Sapp M.D. lk/:02/22/2023 15:07:15 letter sent: Additional Imaging Needed ACR BI-RADS Category 0: Incomplete 3340F
[2023-02-22 16:32] LABS: Add Manual Diff / Slide Review NO; Basophils Absolute Auto 0 /uL (0-100); Basophils Percent Auto 0.5 % (0-2); Eosinophils Absolute Auto 100 /uL (0-450); Eosinophils Percent Auto 1.4 % (2-4); Hematocrit 42.8 % (36-46); Lymphocytes Absolute Auto 1500 /uL (1100-4500); Lymphocytes Percent Auto 24.7 % (25-40); Mean Corpuscular Hemoglobin 30.8 PG (26-34); Monocytes Absolute Auto 500 /uL (0-900); Monocytes Percent Auto 8.3 % (3-14); Neutrophils Absolute Auto 4100 /uL (1500-7000); Neutrophils Percent Auto 65.1 % (50-75); Platelet Count 240 X10^3/uL (150-400); Red Blood Cell Count 4.87 X10^6/uL (4.0-5.2); Red Cell Distribution Width 12.8 % (11.6-14.8); White Blood Cell Count 6.3 X10^3/uL (4.5-11.0)
[2023-02-22 17:07] LABS: Alanine Aminotransferase 43 IU/L (<35); Albumin 4.3 g/dL (3.5-5.0); Alkaline Phosphatase 87 U/L (38-126); Aspartate Aminotransferase 44 IU/L (14-36); BUN Creatinine Ratio 32.4 (6-22); Bilirubin Total 0.8 mg/dL (0.2-1.3); Blood Urea Nitrogen 23 mg/dL (7-17); Calcium 9.5 mg/dL (8.4-10.2); Carbon Dioxide 25 mmol/L (22-32); Chloride 101 mmol/L (98-107); Cholesterol 229 mg/dL (140-199); Estimated Glomerular Filt Rate > 60 mL/min (>60); Globulin 2.2 g/dL (1.7-4.1); Glucose 98 mg/dL (80-110); HDL Cholesterol 53 mg/dL (40-60); HEMOLYSIS < 15 (0-50); LDL Cholesterol Calculated 137 mg/dL (<100); Potassium 3.4 mmol/L (3.4-5.1); Sodium 136 mmol/L (137-145); Total Protein 6.5 g/dL (6.3-8.2); Triglycerides 195 mg/dL (35-150)
== END ==
PROVIDERS: PCP Family Medicine; Referring Provider Family Medicine; Visit Provider Family Medicine
DX: Z12.31 Encounter for screening mammogram for malignant neoplasm of breast (principal); Z80.3 Family history of malignant neoplasm of breast; E78.5 Hyperlipidemia, unspecified; I10 Essential (primary) hypertension; R73.03 Prediabetes; Z86.39 Personal history of other endocrine, nutritional and metabolic disease
CPT/HCPCS: 36415; 77063; 77067; 80053; 80061; 85025

== ENCOUNTER → 2023-03-07 10:14 | Outpatient (CLI) | payer OTHER, SELFPAY ==
--- NOTE | 2023-03-07 | DI.US.S_ITS ---
LIMITED ULTRASOUND OF RIGHT BREAST: 03/07/2023 CLINICAL: Patient returns today to evaluate a focal asymmetry in the right breast. Comparison is made to exams dated: 03/07/2023 mammogram, 02/22/2023 mammogram, 02/04/2022 mammogram, and 02/03/2021 mammogram - [facility]. Real-time ultrasound of the right breast 10-11 o'clock region was performed. Schwarz scale images of the real-time examination were reviewed. No significant abnormalities were seen sonographically in the right breast. IMPRESSION: NEGATIVE There is no sonographic evidence of malignancy. A 1 year screening mammogram is recommended. Exam findings were conveyed to the patient. This exam was interpreted at Station ID: [id number]. Electronically Signed By: Tello Sánchez M.D. slc/:03/07/2023 11:34:53 letter sent: Normal Exam Ultrasound BI-RADS: 1 Negative
--- NOTE | 2023-03-07 | DI.MG.S_ITS ---
UNILATERAL RIGHT DIGITAL DIAGNOSTIC MAMMOGRAM 3D/2D WITH ADDITIONAL VIEWS: 03/07/2023 CLINICAL: Additional evaluation requested from prior study. Comparison is made to exams dated: 02/22/2023 mammogram, 02/04/2022 mammogram, 02/03/2021 mammogram - [facility], 02/08/2019 mammogram, and 11/23/2017 mammogram - outside location. The right breast is heterogeneously dense, which may obscure small masses (category c / 51-75% glandular tissue). There is possible architectural distortion in the right breast at 10 o'clock middle depth. This is not seen in additional views. No other significant masses or calcifications are seen in the breast. IMPRESSION: INCOMPLETE: NEEDS ADDITIONAL IMAGING EVALUATION The possible architectural distortion in the right breast is indeterminate. A targeted ultrasound is recommended and will immediately follow. Based on the Tyrer Cuzick model (a risk assessment model) the patient's lifetime risk is 3.6% and her 10 year risk is 1.8%. According to the ACR, ACS, and NCCN guidelines, an annual breast MRI exam along with mammogram is recommended if the patient's lifetime risk is 20% or greater. This exam was interpreted at Station ID: [id number]. NOTE: For mammograms, a report in lay terms will be sent to the patient. Approximately 15% of breast malignancies will not be visualized mammographically. In the management of a palpable breast mass, a negative mammogram must not discourage biopsy of a clinically suspicious lesion. Electronically Signed By: Tello Sánchez M.D. slc/:03/07/2023 10:38:26 ACR BI-RADS Category 0: Incomplete 3340F
== END ==
PROVIDERS: PCP Family Medicine; Referring Provider Family Medicine; Visit Provider Family Medicine
DX: R92.8 Other abnormal and inconclusive findings on diagnostic imaging of breast (principal)
CPT/HCPCS: 76642; 77065; G0279

== ENCOUNTER → 2023-07-01 09:15 | Outpatient (CLI) | payer OTHER, SELFPAY ==
[2023-07-01 09:41] LABS: BUN Creatinine Ratio 31.4 (6-22); Blood Urea Nitrogen 22 mg/dL (7-17); Cholesterol 202 mg/dL (140-199); Estimated Glomerular Filt Rate > 60 mL/min (>60); HDL Cholesterol 46 mg/dL (40-60); LDL Cholesterol Calculated 107 mg/dL (<100); Triglycerides 246 mg/dL (35-150)
== END ==
PROVIDERS: PCP Family Medicine; Referring Provider Family Medicine; Visit Provider Family Medicine
DX: I10 Essential (primary) hypertension (principal); E78.5 Hyperlipidemia, unspecified; R79.9 Abnormal finding of blood chemistry, unspecified
CPT/HCPCS: 36415; 80061; 82565; 84520

== ENCOUNTER → 2023-10-05 16:20 | Outpatient (CLI) | payer OTHER, SELFPAY ==
--- NOTE | 2023-10-05 16:23 | DI.RAD.S_ITS ---
PROCEDURE: XR FOOT LT MIN 3V INDICATIONS: Pain left foot lateral side; no hx of injury TECHNIQUE: 3 views of the foot were acquired. COMPARISON: [facility], CR, XR FOOT LT MIN 3V, 02/01/2022, 9:30. FINDINGS: Bones: Moderate midfoot osteoarthrosis, progressed since prior radiograph 02/01/2022. Large calcaneal and small retrocalcaneal enthesophytes. No fractures or dislocations. No suspicious bony lesions. Soft tissues: No tibiotalar joint effusion. Achilles tendon appears normal. IMPRESSION: Moderate degenerative changes of the midfoot, progressed since 02/01/2022. No acute osseous abnormality. If symptoms persist with conservative management, consider cross-sectional imaging such as CT or MRI. Dictated by: Martha Montes M.D. on 10/05/2023 at 17:50 Approved by: Martha Montes M.D. on 10/05/2023 at 17:51
== END ==
LOC: RAD 16:22
PROVIDERS: PCP Family Medicine; Referring Provider Physician Assistant; Visit Provider Physician Assistant
DX: M19.072 Primary osteoarthritis, left ankle and foot (principal); M79.672 Pain in left foot
CPT/HCPCS: 73630

== ENCOUNTER 2023-12-21 09:25 | Emergency (ER) | payer OTHER, SELFPAY ==
[2023-12-21 09:30] VITALS: BP 152/70; PULSE 53; RESP 14; TEMP 36.3; O2SAT 99; BMI 26.6
--- NOTE | 2023-12-21 09:59 | ED.EXTPRO ---
HPI - Extremity Problem General Chief complaint: Extremity Problem,Nontraumatic Stated complaint: WIC LT hand Injury, per pt rib popped out of place Time Seen by Provider: 12/21/23 09:40 Source: patient Mode of arrival: Ambulatory History of Present Illness HPI Narrative: 68-year-old female presents for left index finger infection as well as a possible popped rib. Patient has a fingernail abnormality from a previous injury and occasionally gets infections in her nailbed requiring antibiotics. Several weeks ago patient had a minor fall and hit her right side against a ladder. She saw her primary care doctor 12/03 for pain and he told her that it was a displaced rib. He did a manipulation that made her feel better. Patient states she feels a clicking sensation every now and then when she moves her right arm and is concerned that maybe her shoulder is displaced and it was not her ribs Related Data Home Medications Medication Instructions Recorded Confirmed ibuprofen 200 mg capsule 200 mg PO Q6H PRN Pain 06/24/20 12/05/23 metronidazole 0.75 % topical cream 1 applictn topical DAILY 06/24/20 12/05/23 multivitamin PO 06/24/20 12/05/23 Previous Rx's Medication Instructions Recorded lisinopril 10 mg tablet 10 mg PO DAILY #90 tabs 09/12/23 hydrochlorothiazide 25 mg tablet 25 mg PO DAILY #90 tabs 12/19/23 neomycin-bacitracn Zn-polymyx 3.5 1 applic topical TID #15 grams 12/21/23 mg-400 unit-5,000 unit/gram top oint (Triple Antibiotic) Allergies Allergy/AdvReac Type Severity Reaction Status Date / Time codeine Allergy Mild Verified 12/21/23 09:30 latex Allergy Mild Verified 12/21/23 09:30 Sulfa (Sulfonamide Allergy Mild Verified 12/21/23 09:30 Antibiotics) morphine AdvReac Mild Vomiting Verified 12/21/23 09:30 Review of Systems Review of Systems Narrative: Negative except as noted above Patient History Medical History (Updated 12/21/23 @ 11:08 by Mary Ellen Dumas MD) Segmental and somatic dysfunction of rib cage Thoracic region somatic dysfunction Rib pain on right side Body posture problem Upper extremity somatic dysfunction Stiffness of finger joint of right hand Elevated BUN Acute pain of left knee Hemangioma of chest wall Traumatic loss of toenail of right great toe History of hypokalemia Left foot pain Diarrhea Continuous RLQ abdominal pain Onychomycosis of right great toe Pelvic somatic dysfunction Pelvic pain History of nephrolithiasis Arthritis Edema of left lower extremity Pelvic somatic dysfunction Somatic dysfunction of lower extremity Iliotibial band syndrome, right leg Chronic pain of right knee Pain in right winn Paronychia Pre-diabetes Hyperlipidemia Rosacea (~2006) Eczema (~2009) Osteoarthritis Hay fever (~2009) Restless leg syndrome Shoulder pain (~2011) Fractures (~2007) Foot pain (~2012) Shingles Staph infection (~2007) Measles Chicken pox History of recurrent ear infection Partial blindness Kidney stones (~2012) Hemorrhoid (~2007) Systolic murmur (~11/2009) Hypertension (~2012) Surgical History Hx of cystoscopy (07/10/21) History of breast biopsy Anesthesia History of hand surgery (~2007) History of foot surgery History of hysterectomy Family History Father Diabetes mellitus History of heart disease Hyperlipidemia Hypertension Mother No problems noted. Grandfather Gout Family/Other Mental health problem Brother Kidney stones Sister Kidney stones Social History household members: spouse Smoking Status: Never smoker alcohol intake: current substance use type: does not use Smoking Status: Never smoker alcohol intake frequency: holidays/special occasions only Substance Use Type: does not use Exam Initial Vital Signs Initial Vital Signs: Vital Signs Temperature 97.4 F L 12/21/23 09:30 Pulse Rate 53 L 12/21/23 09:30 Respiratory Rate 14 12/21/23 09:30 Blood Pressure 152/70 H 12/21/23 09:30 Pulse Oximetry 99 12/21/23 09:30 Oxygen Delivery Method Room Air 12/21/23 09:30 Const: Awake, alert, no acute distress, nontoxic appearing Cardiac: regular rate, regular rhythm RESP: unlabored, clear bilaterally, no wheezing GI: Soft, nontender, nondistended, no rebound, no guarding MSK: minor paronychia L index finger nailbed, no abscess Skin: Warm, Dry, intact, no rashes Neuro: AO x3, CN II-XII grossly intact, moves all extremities Course Orders Ordered: ED Orders 12/21/23 09:58 XR ribs RT min 3V w CXR1V Stat Vital Signs Vital signs: Vital Signs - 8 hr 12/21/23 09:30 Temperature 97.4 F L Pulse Rate 53 L Respiratory Rate 14 Blood Pressure 152/70 H Pulse Oximetry 99 Oxygen Delivery Method Room Air MDM - Extremity (Nontraumatic) Imaging Data Chest x-ray: Radiologist's Impression: PROCEDURE: XR RIBS RT MIN 3V W CXR 1V INDICATIONS: 'RIB POPPED OUT OF PLACE' TECHNIQUE: 3 views of the ribs were acquired, along with a single view chest. COMPARISON: None. FINDINGS: Surgical changes and devices: None. Bones and chest wall: No fractures or dislocations. No suspicious bony lesions. Overlying soft tissues appear unremarkable. Lungs and pleura: No pleural effusions or pneumothorax. Lungs appear clear. Mediastinum: Mediastinal contours appear normal. Heart size is normal. IMPRESSION: No visualized acute fracture or dislocation. However, if clinical concern and/or pain persist, short interval imaging followup in 7-10 days is recommended, as occult injury cannot be definitively excluded. Dictated by: Charlene Bueno M.D. on 12/21/2023 at 11:02 Approved by: Charlene Bueno M.D. on 12/21/2023 at 11:02 [facility] Narrative Medical decision making narrative: Well-appearing patient with left index finger paronychia and persistent pain and clicking sensation in her left shoulder with movements. There is no deformity or obvious physical exam abnormalities. Index finger paronychia is very minor and does not have any drainable fluid collection. Rib series x-ray is negative, at 3 weeks post injury a fracture would likely have been identified by now. Patient counseled to use warm water soaks on her index finger and to apply triple antibiotic ointment. PCP follow up advised. Discharge Plan Departure Patient Disposition: Home Clinical Impression: Paronychia, Pain in rib Instructions: DI for Rib Fracture, DI for Paronychia Activity Restrictions/Additional Instructions: Take Tylenol and Motrin as needed for rib pain. Do warm water soaks for your finger and apply antibiotic ointment to prevent worsening. Prescriptions: New Triple Antibiotic 3.5mg-400 unit- 5,000 unit/gram ointment 1 applic topical TID Qty: 15 0RF No Action lisinopril 10 mg tablet 10 mg PO DAILY Qty: 90 1RF hydrochlorothiazide 25 mg tablet 25 mg PO DAILY Qty: 90 0RF Rx Instructions: Take 1 tab by mouth daily ibuprofen 200 mg capsule 200 mg PO Q6H PRN (Reason: Pain) multivitamin PO metronidazole 0.75 % cream 1 applictn TOP DAILY Referrals: Cruz Brown DO [Primary Care Provider] - Stand Alone Forms: Patient Portal/API
[2023-12-21 11:13] VITALS: BP 136/90; PULSE 58; O2SAT 97
== END 2023-12-21 11:14 | disposition home or self-care (01) ==
PROVIDERS: Emergency Provider Emergency Medicine; PCP Family Medicine
DX: L03.012 Cellulitis of left finger (principal); R07.81 Pleurodynia
CPT/HCPCS: 71101; 99281; 99283

== ENCOUNTER → 2024-03-05 12:48 | Outpatient (CLI) | payer OTHER, SELFPAY ==
--- NOTE | 2024-03-05 12:49 | DI.MG.S_ITS ---
BILATERAL DIGITAL SCREENING MAMMOGRAM 3D/2D WITH CAD: 03/05/2024 CLINICAL: Routine screening. Family history of breast cancer. Comparison is made to exams dated: 02/22/2023 mammogram, 02/04/2022 mammogram, and 02/03/2021 mammogram - [facility]. Both breasts are heterogeneously dense, which may obscure small masses (category c / 51-75% glandular tissue). Current study was also evaluated with a Computer Aided Detection (CAD) system. There is architectural distortion in the right breast at 11 o'clock middle depth. There is a focal asymmetry in the left breast at 1 o'clock middle depth. No other significant masses or calcifications are seen in either breast. IMPRESSION: INCOMPLETE: NEEDS ADDITIONAL IMAGING EVALUATION The architectural distortion in the right breast at 11 o'clock middle depth is indeterminate. Additional views with possible ultrasound are recommended. This is even more prominent than last year. The focal asymmetry in the left breast at 1 o'clock middle depth is indeterminate. Additional views with possible ultrasound are recommended. Based on the Tyrer Cuzick model (a risk assessment model) the patient's lifetime risk is 3.4% and her 10 year risk is 1.8%. According to the ACR, ACS, and NCCN guidelines, an annual breast MRI exam along with mammogram is recommended if the patient's lifetime risk is 20% or greater. This exam was interpreted at Station ID: [id number]. NOTE: For mammograms, a report in lay terms will be sent to the patient. Approximately 15% of breast malignancies will not be visualized mammographically. In the management of a palpable breast mass, a negative mammogram must not discourage biopsy of a clinically suspicious lesion. Electronically Signed By: Adonis Drake M.D. /:03/06/2024 16:10:32 letter sent: Additional Imaging Needed ACR BI-RADS Category 0: Incomplete 3340F
== END ==
LOC: MAMMO 12:48
PROVIDERS: PCP Family Medicine; Referring Provider Family Medicine; Visit Provider Family Medicine
DX: Z12.31 Encounter for screening mammogram for malignant neoplasm of breast (principal); Z80.3 Family history of malignant neoplasm of breast; R92.333 Mammographic heterogeneous density, bilateral breasts
CPT/HCPCS: 77063; 77067

== ENCOUNTER → 2024-03-05 14:08 | Outpatient (CLI) | payer OTHER, SELFPAY | PROVIDERS: PCP Family Medicine; Visit Provider Physician Assistant Medical | DX: M54.50 Low back pain, unspecified (principal) | CPT/HCPCS: 87086 ==

== ENCOUNTER → 2024-03-27 08:47 | Outpatient (CLI) | payer OTHER, SELFPAY ==
--- NOTE | 2024-03-27 08:48 | DI.US.S_ITS ---
LIMITED ULTRASOUND OF LEFT BREAST: 03/27/2024 CLINICAL: Patient returns today to evaluate a focal asymmetry in the left breast. Comparison is made to exams dated: 03/27/2024 mammogram, 03/05/2024 mammogram, 02/22/2023 mammogram, and 02/04/2022 mammogram - [facility]. Color flow and real-time ultrasound of the left breast 1 o'clock region were performed. Schwarz scale images of the real-time examination were reviewed. There is a new 0.9 cm x 0.9 cm x 0.6 cm oval complicated cyst in the left breast at 1 o'clock middle depth 4 cm from the nipple. This oval complicated cyst is hypoechoic. This correlates with mammography findings. Color flow imaging demonstrates that there is no vascularity present. IMPRESSION: PROBABLY BENIGN The new 0.9 cm complicated cyst in the left breast is probably benign. A follow-up mammogram and an ultrasound in 6 months is recommended to demonstrate stability. Exam findings were conveyed to the patient. This exam was interpreted at Station ID: [id number]. Electronically Signed By: Tello Sánchez M.D. slc/:03/27/2024 10:00:46 letter sent: Followup Recommended Ultrasound BI-RADS: 3 Probably benign
--- NOTE | 2024-03-27 08:48 | DI.US.S_ITS ---
LIMITED ULTRASOUND OF RIGHT BREAST: 03/27/2024 CLINICAL: Patient returns today to evaluate a focal asymmetry in the right breast. Comparison is made to exams dated: 03/27/2024 mammogram, 03/05/2024 mammogram, 03/07/2023 ultrasound, 03/07/2023 mammogram, and 02/22/2023 mammogram - [facility]. Real-time ultrasound of the right breast 9-12 o'clock region was performed. Schwarz scale images of the real-time examination were reviewed. No significant abnormalities were seen sonographically in the right breast. IMPRESSION: SUSPICIOUS OF MALIGNANCY No mass seen in the region of possible architectural distortion. A stereotactic biopsy is recommended. Exam findings were discussed with the patient by Dr. Sánchez. This exam was interpreted at Station ID: [id number]. Electronically Signed By: Tello Sánchez M.D. slc/:03/27/2024 11:05:21 letter sent: Biopsy Required Ultrasound BI-RADS: 4b Moderate suspicion of malignancy
--- NOTE | 2024-03-27 08:48 | DI.MG.S_ITS ---
BILATERAL DIGITAL DIAGNOSTIC MAMMOGRAM 3D/2D: 03/27/2024 CLINICAL: Additional evaluation requested from prior study. Comparison is made to exams dated: 03/05/2024 mammogram, 02/22/2023 mammogram, and 02/04/2022 mammogram - [facility]. Both breasts are heterogeneously dense, which may obscure small masses (category c / 51-75% glandular tissue). There is possible architectural distortion in the right breast at 11 o'clock middle depth. There is a focal asymmetry in the left breast at 1 o'clock middle depth. No other significant masses or calcifications are seen in either breast. IMPRESSION: INCOMPLETE: NEEDS ADDITIONAL IMAGING EVALUATION The possible architectural distortion in the right breast at 11 o'clock middle depth is indeterminate. The focal asymmetry in the left breast at 1 o'clock middle depth is indeterminate. A targeted ultrasound is recommended and will immediately follow. Based on the Tyrer Cuzick model (a risk assessment model) the patient's lifetime risk is 3.4% and her 10 year risk is 1.8%. According to the ACR, ACS, and NCCN guidelines, an annual breast MRI exam along with mammogram is recommended if the patient's lifetime risk is 20% or greater. This exam was interpreted at Station ID: [id number]. NOTE: For mammograms, a report in lay terms will be sent to the patient. Approximately 15% of breast malignancies will not be visualized mammographically. In the management of a palpable breast mass, a negative mammogram must not discourage biopsy of a clinically suspicious lesion. Electronically Signed By: Tello Sánchez M.D. slc/:03/27/2024 09:27:39 ACR BI-RADS Category 0: Incomplete 3340F
== END ==
PROVIDERS: PCP Family Medicine; Referring Provider Family Medicine; Visit Provider Family Medicine
DX: R92.8 Other abnormal and inconclusive findings on diagnostic imaging of breast (principal); N60.02 Solitary cyst of left breast; R92.333 Mammographic heterogeneous density, bilateral breasts
CPT/HCPCS: 76642; 77066; G0279

== ENCOUNTER 2024-04-17 07:46 | Day surgery (SDC) | payer OTHER, SELFPAY ==
[2024-04-16 08:20] VITALS: BMI 26.0
--- NOTE | 2024-04-16 08:21 | PM.PREOP ---
Pre-operative Note Interval Note History & Physical reviewed/Exam performed by Physician: Yes Changes to H&P: No
[2024-04-17] VITALS (7 sets, daily range): BP systolic 126–143; BP diastolic 68–81; PULSE 54–63; RESP 12–20; TEMP 36.3–36.8; O2SAT 95–99; BMI 29.2
--- NOTE | 2024-04-17 | PATH_ITS ---
[facility] Accession Number: [id number] No. of containers..02 Tissue . 01 Material submitted: . PART A: breast - RIGHT BREAST TISSUE UPPER OUTER QUADRANT PART B: breast - RIGHT BREAST INFERIOR MARGIN . 01 Diagnosis: A. RIGHT BREAST TISSUE, UPPER OUTER QUADRANT, EXCISION: Invasive mammary carcinoma with the following features: - Alcides Histologic Score: Grade 2 (Low glandular differentiation-3, intermediate nuclear pleomorphism-2, low mitotic rate-1.) - Please see comment. . B. RIGHT BREAST, INFERIOR MARGIN: Invasive mammary carcinoma with the following features: - Alcides Histologic Score: Grade 2 (Low glandular differentiation-3, intermediate nuclear pleomorphism-2, low mitotic rate-1.) - Lymphovascular invasion present. - Please see comment. [facility] 04/23/2024 1434 Local . 01 Comment: Because of the interesting histologic appearance and the important clinical consequences of the interpretation, this case will be sent to the [facility] for consultation. Complete results will be reported as an addendum. . Dr. Ghislaine Pandey discussed preliminary findings with Roxy in Dr. Li's office on 04/19/2024 at 3:[address] Li on 04/23/2024 at 9:[address] Slaughter also reviewed this case and agrees with the diagnosis of carcinoma. . 01 Electronically signed: . Ghislaine Pandey MD, Pathologist NPI- [id number] . 01 Gross description: . A. Received: In formalin labeled with two patient identifiers and right breast tissue upper outer quadrant. Specimen: Right breast tissue upper outer quadrant, partial mastectomy. Weight: 24 grams. Measurement: 2.4 cm anterior to posterior, 5.2 cm medial to lateral, 4.9 cm superior to inferior. Skin ellipse: Not present. Wire: Present, penetrating superiorly at the medial extreme aspect of the specimen and terminating medial inferiorly. Margins: The margins are inked as follows: Posterior black, anterior green, inferior blue, lateral orange, medial yellow, superior red. Sliced: From lateral to medial into 12 slices. Lesion Lesion #1: White, irregular multilobulated mass measuring 1.1 x 0.9 x 0.3 cm, and involving slice 5, slice 6, and slice 7. Distance to margins: Abuts the inferior margin, 0.3 cm from the deep margin, 0.3 cm from the anterior margin, 1.2 cm from the superior margin, 1.2 cm from the lateral margin, the medial margin is widely clear. Lesion #2: An ill-defined diffusely fibrotic multinodular area measuring 2.2 x 2.0 x 1.4 cm and abutting the inferior margin, anterior margin, and medial margin, and 0.1 cm from the deep margin. The superior and lateral margins are widely clear. The remaining breast tissue is yellow, lobulated, and otherwise unremarkable with a minimal amount of wisping strands of fibrosis. Formalin fixation time: The specimen was placed in formalin at 12:15 p.m. on 04/17/2024 with a total fixation time of 32 hours. Specimen is entirely submitted in cassettes: A1-A2: Slice 1 lateral margin entirely submitted perpendicular sections. A3-A4: Slice 2. A5-A6: Slice 3. A7-A8: Slice 4, lateral bracket to mass 1. A9-A10: Slice 5 to include mass 1 A11-A12: Slice 6 to include mass 1. A13-A14: Slice 7 to include mass 1. A15-A16: Slice 8 to include fibrous area extending from mass 1 medially. A17-A18: Slice 9 to include fibrous area. A19-A20: Slice 10 to include fibrous area. A21-A23: Slice 11 to include fibrous area and also area surrounding radiographic wire. A24-A26: Slice 12 medial margin entirely submitted perpendicular sections. . B. Received: In formalin labeled with two patient identifiers and right breast inferior margin, and consists of a 4.0 x 2.5 x 1.3 cm yellow lobulated focally cauterized fibroadipose tissue. The focally cauterized surface has been previously inked blue by the surgeon, and the opposing surface is arbitrarily inked orange. The specimen is serially sectioned to show a 1.6 x 0.6 x 0.6 cm irregular fibrous area which abuts the blue-inked margin and is within 0.2 cm of the orange -inked margin. The specimen is entirely submitted into cassettes B1-B7. ([id number]) /[facility] 04/18/2024 [facility] Local . 01 Microscopic: . Immunohistochemical stains were performed to characterize cells of interest. All control stains showed appropriate reactivity. . . Block A4 Results: P63: Highlight myoepithelial cells. Myosin: Highlights myoepithelial cells. E-cadherin: Positive. . Block A10 Results: P63: Highlight myoepithelial cells. Myosin: Highlights myoepithelial cells. . Block A11 Results: Mucicarmine: Negative. . Block A18 Results: D2-40: Highlights lymphatic spaces. . Block A21 Results: D2-40: Highlights lymphovascular spaces. . Block A26 Results: High molecular weight keratin: Negative in the invasive carcinoma. P63: Highlights myoepithelial cells. Myosin: Highlights myoepithelial cells. CK5/6: Absent in invasive and in situ carcinoma. Synaptophysin: Uniformly strongly positive. Chromogranin: Uniformly positive. . Estrogen receptor (SP1): Positive (91-100% of cells, moderate intensity). Progesterone receptor (1E2): Negative (less than 1% of cells). Her2 (4B5): Negative (Score 0) . Block B5 Results: P63: Highlight myoepithelial cells. Myosin: Highlights myoepithelial cells. CK5/6: Absent in neoplastic cells. High molecular weight cytokeratin: No membranous staining in neoplastic cells. . Block B6 Results: D2-40: Highlights lymphatic spaces. . Block B7 Results: P63: Highlights myoepithelial cells. Myosin: Highlights myoepithelial cells. . INTERPRETATION: P63 and myosin are absent around the infiltrating carcinoma and also around some of the large nodular nests of neoplastic cells. D2-40 stain highlights lymphatic spaces and is positive for lymphovascular invasion in block B6. The carcinoma shows absence of CK5/6 expression, no membranous staining of high molecular weight cytokeratin, and positive expression of neuroendocrine markers synaptophysin and chromogranin. A mucicarmine stain performed on block A11 is negative for mucin. . Internal controls for ER and LA are positive. False negative results cannot be excluded. Cold ischemic time is <5 minutes. The scoring criteria for breast biomarkers by immunohistochemistry is based on the ASCO/CAP guidelines (Purnima AC et al, J Clin Oncol: 2017Apr 03;36(20):2114-8121 and Raul MCKEON et al, Arch Pathol Lab Med: 2009;134(6):907-22). Deparaffinized sections of formalin fixed tissue (along with appropriate positive controls) are incubated with the above antibody(s). Using the automated [place] stainer, tissue is incubated with the designated antibody which is then localized by a non-biotin, dual polymer detection system. The external controls are reviewed for appropriate reactivity and found to be adequate. Results on the target cell population are indicated above. These tests have not been validated on decalcified tissue. . This test was developed and its performance characteristics determined by [employer]. It has not been cleared or approved by the U.S. Food and Drug Administration. The FDA has determined that such clearance or approval is not necessary. This test is used for clinical purposes. It should not be regarded as investigational or for research. . 01 Pathologist provided ICD-10: C50.911 . 01 CPT . 094421, 130395, X38559, E72269, 147004, 450521, 708250, [id number] Specimen Comment: A courtesy copy of this report has been sent to [phone] Performed at: [address] [facility] [address], [place], [place] [id number] MD Quan Chery MD Phone: [phone]
--- NOTE | 2024-04-17 | DI.MG.S_ITS ---
DIGITAL MAMMOGRAPHY GUIDED WIRE LOCALIZATION RIGHT BREAST WITH POST MAMMOGRAPHIC IMAGIN04/17/2024 CLINICAL: Right breast wire localization. Correlation is made to exams dated: 04/04/2024 stereotactic biopsy - [facility], 03/27/2024 mammogram, 03/05/2024 mammogram, 03/07/2023 mammogram, and 02/22/2023 mammogram - [facility]. A wire localization using digital mammography guidance was performed for the indistinct irregular shaped mass located in the right breast at 10 o'clock middle depth. This was described on the previous mammography and ultrasound reports. The skin was prepped in the usual manner. Local anesthetic was administered to the access site. A skin jose d was made in the breast. The localization was approached from the craniocaudal aspect. A J-hook wire was inserted into the targeted area under digital mammography guidance. A sterile dressing was applied to the access site. Post placement mammographic imaging was obtained. IMPRESSION: WIRE LOCALIZATION Wire localization for the mass in the right breast at 10 o'clock middle depth was successful. Future imaging is recommended as follows: 09/26/2024 left mammogram and an ultrasound. This exam was interpreted at Station ID: Unknown. Lance Hill M.D. sw/:04/17/2024 16:04:00 Entry: - 04/18/2024 10:06:22
[2024-04-17] MEDS: LACTATED RINGERS 1,000 ML 21 ML IV (11:11)
[2024-04-17] MEDS: CEFAZOLIN 2 GM/100 ML PREMIX 100 ML IV (11:36)
--- NOTE | 2024-04-17 11:47 | SUR.OPER ---
Supine on padded OR bed, head on pillow, arms secured on padded arm boards at <90 degrees abduction, legs uncrossed, safety belt at thigh, tape over blanket over lower legs.
[2024-04-17] MEDS: BUPIVACAINE 0.25% (PF) VIAL 30 ML INJ (11:55)
--- NOTE | 2024-04-17 12:48 | P.OP_ITS ---
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 Surgeon: Chetan Li Classification Analyst: Javier Singh Anesthesia Type: General Operative Notes Findings: Clip and wire are within the specimen Specimen(s): other (Right lumpectomy, right inferior margin) Estimated Blood Loss (mL): 30 Procedure in detail: Prior to surgery patient underwent needle localization. Patient was brought to the operating room and placed supine on the table. Bilateral lower extremity compression devices were applied. General anesthesia was induced they were intubated with an endotracheal tube. They were prepped and draped in sterile fashion. Time-out was performed. A curvilinear incision on the upper outer quadrant of the right breast in a natural skin crease was made and subcutaneous tissues were divided. The localizing wire was identified and then brought back within the incision. The end of the wire was within a middle depth breast mass. The mass was excised with the wire and the clip. The specimen was marked as follows: Anterior Green Inferior Blue Lateral Glades Medial Yellow Posterior Black Superior Red The cavity was then reinspected there were some thickening at the inferior margin so an additional margin was taken. This inferior margin, the inferior most portion was marked with blue ink. Hemostasis was obtained. A few clips were placed into the posterior wall of the cavity. Subcutaneous tissues were reapproximated with 3 0 Vicryl sutures skin closed with Monocryl followed by application of Dermabond. The counts were correct. They emerged from anesthesia and were transfered to recovery in stable condition. Complications: none Post-operative Condition: stable Disposition: same day surgery
[2024-04-17] MEDS: ONDANSETRON 4 MG/2 ML INJ IV (13:02)
[2024-04-17] MEDS: METOCLOPRAMIDE 10 MG/2 ML INJ IV (13:08)
--- NOTE | 2024-04-17 13:46 | SUR.PHASEII ---
Pt. and her were given discharge instructions . Both state they understand discharge instructions. Pt denies pain and pt is ready to go.
== END 2024-04-17 14:05 | disposition home or self-care (01) ==
PROVIDERS: PCP Family Medicine; Referring Provider Surgery; Visit Provider Surgery
PROC: (CPT 19125; principal; 2024-04-17 12:15)
DX: C50.411 Malignant neoplasm of upper-outer quadrant of right female breast (principal); Z17.0 Estrogen receptor positive status [ER+]; C77.9 Secondary and unspecified malignant neoplasm of lymph node, unspecified
CPT/HCPCS: 19125; 19281; 82962; C1819; J0690; J1100; J1885; J2405; J2704; J2765; J3010

== ENCOUNTER 2024-05-08 10:09 | Day surgery (SDC) | payer OTHER, SELFPAY ==
[2024-05-06 10:52] VITALS: BMI 29.2
--- NOTE | 2024-05-07 10:31 | PM.PREOP ---
Pre-operative Note Interval Note History & Physical reviewed/Exam performed by Physician: Yes Changes to H&P: No
[2024-05-08] VITALS (13 sets, daily range): BP systolic 127–161; BP diastolic 61–83; PULSE 54–69; RESP 12–20; TEMP 35.8–37.1; O2SAT 97–100; BMI 28.3
--- NOTE | 2024-05-08 | PATH_ITS ---
[facility] Accession Number: [id number] No. of containers..03 Tissue . 01 Material submitted: . PART A: breast - RIGHT BREAST PART B: axilla - AXILLARY CONTENT, RIGHT PART C: breast - LEFT BREAST . 01 Diagnosis: A. RIGHT BREAST, MASTECTOMY: Solid papillary carcinoma with invasion. Please see CAP cancer summary below. . B. AXILLARY CONTENTS, RIGHT: Three lymph nodes negative for metastatic carcinoma. Please see CAP cancer summary below. . C. LEFT BREAST, MASTECTOMY: Mucinous carcinoma. Please see CAP cancer summary below. . CAP CANCER CASE SUMMARY: Invasive carcinoma of the breast (4.10.0.0, February 2024). . Procedure: Total mastectomy. Specimen Laterality: RIGHT. . Tumor site: Upper outer quadrant. Histologic type: Solid papillary carcinoma with invasion. Histologic grade ([place] histologic score): Glandular/Tubular differentiation: Score 3. Nuclear Pleomorphism: Score 2. Mitotic Rate: Score 1. Overall Grade: Grade 2. Tumor size: Greatest dimension of largest invasive focus: up to 42 mm. Tumor focality: Single focus of invasive carcinoma. Solid papillary carcinoma in situ (DCIS): Present. Positive for extensive intraductal component. Size/extent of solid papillary carcinoma in situ: Estimated size 42 mm. Necrosis: Present, focal. Tumor extent: Not applicable . Lymphatic and/or vascular invasion: Present (LVI in one block current case, and one block prior excision). Microcalcifications: Present in in situ carcinoma, invasive carcinoma, and in non-neoplastic tissue. . Treatment effect in the breast: No known presurgical therapy. Treatment effect in the lymph nodes: Not applicable. . Margins: Margin status for invasive carcinoma: All margins negative for invasive carcinoma. Distance from invasive carcinoma to closest margin: 2 mm, anterior inferior, green ink. Margin status for Solid Papillary carcinoma in situ (DCIS): All margins negative for in-situ carcinoma. Distance from Solid Papillary carcinoma in situ (DCIS) to closest margin: 3 mm, anterior inferior, green ink. . Regional lymph node status: Regional lymph nodes present. All regional lymph nodes negative for tumor. Total number of lymph nodes examined: 3. Number of sentinel nodes examined: Not applicable. . Distant sites involved: Not applicable. . pTNM classification (AJCC, 8th edition): pT cateogry: pT2. pN category: pN0. pM category: Not applicable. . Special studies: Progesterone Receptor Status: Positive, 71-80%, moderate . Breast biomarker studies performed on the previous biopsy ([id number]): Estrogen Receptor (ER) Status: Positive, 91-100%, moderate. HER2 (by immunohistochemistry, 4B5): Negative, score 0. . . . CAP CANCER CASE SUMMARY Invasive carcinoma of the breast (4.10.0.February). . Procedure: Total mastectomy. Specimen Laterality: LEFT . Tumor site: Upper outer quadrant. . Histologic type: Mucinous carcinoma. Histologic grade ([place] histologic score): Glandular/Tubular differentiation: Score 2. Nuclear Pleomorphism: Score 2. Mitotic Rate: Score 1. Overall Grade: Grade 1. Tumor size: Greatest dimension of largest invasive focus: 13 mm. Tumor focality: Single focus of invasive carcinoma. Ductal carcinoma in situ (DCIS): Present. Size of DCIS: 15 mm estimated size. Architectural patterns: Cribriform. Nuclear grade: Grade 1 (low). Necrosis: Not identified. Lobular carcinoma in situ: Not identified. Tumor extent: Not applicable. . Lymphatic and/or vascular invasion: Not identified. Microcalcifications: Present in non-neoplastic tissue. . Treatment effect in the breast: No known presurgical therapy. Treatment effect in the lymph nodes: Not applicable. . Margin status for invasive carcinoma: All margins negative for invasive carcinoma. Distance of invasive carcinoma to closest margin: 3 mm, anterior superior, blue ink. Margin status for DCIS: All margins negative for DCIS. Distance from DCIS to closest margin: 2 mm, anterior superior, blue ink. . Regional lymph node status: Not applicable (no regional lymph nodes submitted or found). . pTNM classification (AJCC, 8th edition) pT category: pT1c. pN category: pN not assigned (no nodes submitted or found). pM category: Not applicable. . Additional findings: Proliferative changes ranging from usual ductal hyperplasia, adenosis, benign intraductal papillomas, and apocrine metaplasia. . Special studies: Estrogen Receptor (SP1) status: Positive, 91-100%, strong. Progesterone Receptor (1E2) status: Positive, 81-90%, strong. HER2 (by immunohistochemistry, 4B5): Negative (score 0). [facility] 05/20/2024 1201 Local . 01 Comment: A. The estimated size of the carcinoma is based on the combination of gross and histologic findings and incorporates the size of the previous surgical cavity. Carcinoma is present in slices 4-9; each slice is estimated to be up to 0.7 mm thick for a maximum dimension of 42 mm. In addition, although carcinoma is present at the orange-inked transmural defect (prior surgical cavity) in the anterior superior portion of the specimen, this area is not considered a margin, per Dr. Li. . A-C. Dr. Slaughter reviewed this case and agrees with the diagnoses of carcinoma in parts A and the diagnosis of mucinous carcinoma in part C. . Dr. Ghislaine Pandey discussed preliminary results with Dr. Chetan Li on 05/17/2024 at 9:30 a.m. . 01 Electronically signed: . Ghislaine Pandey MD, Pathologist NPI- [id number] . 01 Gross description: . A. Received: In formalin with two patient identifiers and right breast. Specimen: An oriented right simple mastectomy. Weight: 861 grams. Measurement: 19.1 cm superior to inferior, 21.3 cm medial to lateral, 5.5 cm anterior to posterior. Skin ellipse: 21.3 x 10.0 cm, cardenas to blue-stained skin with no distinct scars grossly identified. Nipple/areola: 0.9 x 0.9 cm diameter everted nipple within a pale 4.8 x 4.0 cm diameter areola with no scars identified. Axillary tail: Absent. Margins: The skin is oriented with a short suture superior and a long suture lateral per the requisition. The anterior-superior margin has a transmural defect (2.6 x 0.6 cm) adjacent to the skin in the upper outer quadrant, and the edges of this defect are inked orange. The remaining margins are unremarkable with the anterior-superior inked blue, the anterior-inferior inked green, and the posterior inked black. Sliced: Sectioned from lateral to medial into 17 slices. Lesion: Description: A thin, smooth-walled cavity located in the upper outer quadrant with associated fibrotic changes. Size: 6.6 x 5.4 x 1.7 cm with adjacent fibrous tissue extending 3.6 cm medially from the edge of the cavity. Slices involved: The cavity is within slice 3-9 with fibrous tissue extending into slices 10 and 11. Distance to margins: The biopsy cavity is visible to the anterior-superior margin (orange ink), 1.5 cm from the posterior margin, and 1.7 cm from the anterior-inferior margin. Other: The remaining cut surfaces are yellow to white fibroadipose tissue with fibrous tissue occupying approximately 20% of the cut surface. Fixation: Specimen was removed on 05/08/2024, time not provided. Cold ischemic time cannot be calculated. Total fixation time is approximately 53 hours following additional fixation. [facility] sections are submitted as follows: A1: Entire bisected nipple. A2: Skin and adjacent defect. A3: Slice 2, lateral to cavity. A4: Slice 4, inferolateral cavity. A5: Slice 5, inferior cavity with adjacent defect. A6: Slice 5, inferior cavity. A7: Slice 6, anterior cavity with defect. A8: Slice 7, anterior cavity. A9: Slice 7, posterior cavity. A10: Slice 8, posterior cavity. A11: Slice 9, medial cavity. A12: Slice 10, fibrous tissue medial to cavity. A13: Lower outer quadrant. A14: Lower inner quadrant. A15: Upper inner quadrant. . B. Received in formalin with two patient identifiers and axillary content right, are multiple fragments of yellow lobulated adipose aggregating to 6.7 x 5.1 x 2.3 cm. Palpation reveals five cardenas lymph node candidates, 0.2 to 1.5 cm in greatest dimension. Submitted as follows: B1: Three intact lymph node candidates. B2: Single bisected lymph node candidate. B3-B4: Single, serially sectioned lymph node candidate. Fixation: The specimen is removed on 05/08/2024, time not provided. Cold ischemic time cannot be calculated. Total fixation time is approximately 53 hours following additional fixation. . C. Received: In formalin with two patient identifiers and left breast and small superior margin. Specimen: An oriented simple left mastectomy and an oriented additional superior margin with skin. Mastectomy Weight: 856 grams. Measurement: 17.5 cm superior to inferior, 24.6 cm medial to lateral, 6.8 cm anterior to posterior. Skin ellipse: Present, 24.6 x 7.0 cm, pink-cardenas unremarkable skin. Nipple/areola: 1.0 x 0.9 cm everted nipple within a 3.4 x 3.2 cm pale areola with no scars or lesions identified. Axillary tail: Absent. Margins: Oriented with a short superior and long lateral suture per the requisition. The margins are unremarkable and inked anterior-superior blue, anterior-inferior green, posterior black. Slices: Sectioned from medial to lateral into 20 slices. Lesions: No lesions identified. Other: The cut surfaces are yellow to white fibroadipose tissue with diffuse white to hemorrhagic, dense fibrous tissue occupying approximately 20% of the cut surface with no distinct lesions identified. Anterior margin Weight: 168 grams. Measurement: 8.8 cm superior to inferior, 19.1 cm medial to lateral, 2.2 cm anterior to posterior. Skin ellipse: Present, 14.5 x 5.3 cm with pink-cardenas unremarkable skin. Nipple/areola: Absent. Axillary tail: Absent. Margins: The skin marked with a short superior and long suture lateral per the requisition. The margins are unremarkable and inked anterior-superior blue, anterior-inferior green, posterior black. Slices: Sectioned from medial to lateral into 25 slices. Lesion: No distinct lesions identified. Other: The cut surfaces are yellow to white fibroadipose tissue with a few stents, focally hemorrhagic cystic fibrous tissue occupying approximately 10% of the cut surface. Fixation: The specimen was removed on 05/08/2024, time not provided. Cold ischemic time cannot be calculated. Total fixation time is approximately 53 hours following additional fixation. [facility] sections are submitted as follows: C1: Entire bisected nipple. C2-C3: Upper inner quadrant. C4-C5: Lower inner quadrant. C6-C7: Lower outer quadrant. C8-C9: Upper outer quadrant. C10-C11: Superior margin. ([id number]) ADDITIONAL GROSS PART C: An ill-defined, cardenas, firm lesion is identified within the upper outer quadrant, 1.3 x 0.9 x 0.6 cm that grossly approaches the blue-inked margin (C9). A second small firm, well-circumscribed nodule located at the lateral aspect of the breast at 3 o'clock middle depth measures 0.3 x 0.2 x 0.2 cm and is located 1.2 cm from the nearest blue-inked margin. Representaive sections are submitted as follows: C12-C13: Remaining tissue around Upper outer quadrant lesion. C14: 3 o'clock small nodule. ([id number]) /MRV 05/20/2024 1201 Local . 01 Microscopic: . Immunohistochemical stains are performed to characterize cells of interest. All control stains showed appropriate reactivity. . RESULTS: Block A4: p63: Highlights myoepithelial cells. Myosin: Highlights myoepithelial cells. SD: Positive, moderate intensity, 71-80% of cells. Synaptophysin: Positive. Chromogranin: Rare cells positive. . Block A6: p63: Highlights myoepithelial cells. Myosin: Highlights myoepithelial cells. . Block A11: p63: Highlights myoepithelial cells. Myosin: Highlights myoepithelial cells. SD: Positive, mild intensity, 10-20% of cells. . Block C2: p63: Highlights myoepithelial cells. Myosin: Highlights myoepithelial cells. Estrogen receptor: Positive, strong intensity, 100% of neoplastic cells of interest. CK5/6: Absent in the neoplastic cells of interest. Synaptophysin: Absent in the neoplastic cells of interest. . Block C3: Estrogen receptor: Positive, strong intensity, 100% of neoplastic cells of interest. CK5/6: Absent in the neoplastic cells of interest. . Block C9: p63: Highlights myoepithelial cells. Myosin: Highlights myoepithelial cells. Estrogen receptor (SP1): Positive, strong intensity, 90-100% of cells. Progesterone receptor (1E2): Positive, strong intensity, 81-90% of cells. HER2 (4B5): Negative (Score 0). Chromogranin: Negative. Synaptopysin: Negative. . INTERPRETATION: See diagnosis and comment. . The scoring criteria for breast biomarkers by immunohistochemistry is based on the current ASCO/CAP guidelines. Deparaffinized sections of formalin fixed tissue (along with appropriate positive controls) are incubated with the above antibody(s). Using the automated [place] stainer, tisue is incubated with the designated antibody* which is then localized by an non-biotin, dual polymer detection system. The external controls are reviewed for appropriate reactivity and found to be adequate. Results on the target cell population are indicated above. These tests have not been validated on decalcified tissue. . * This test was developed and its performance characteristics determined by [facility]. It has not been cleared or approved by the U.S. Food and Drug Administration. The FDA has determined that such clearance or approval is not necessary. This test is used for clinical purposes. It should not be regarded as investigational or for research. . 01 Pathologist provided ICD-10: C50.911, C50.912 . 01 CPT . 186222, 443885, 167301, E85628, O01804, 173696, 681583, 027661, 228602 Specimen Comment: A courtesy copy of this report has been sent to [phone] Performed at: [address] [id number], [place], [place] [id number] MD Quan Chery MD Phone: [phone]
[2024-05-08] MEDS: LACTATED RINGERS 1,000 ML 21 ML IV (10:18)
[2024-05-08] MEDS: CEFAZOLIN 2 GM/100 ML PREMIX 100 ML IV (11:25)
--- NOTE | 2024-05-08 11:39 | SUR.OPER ---
Supine on padded OR bed, head on pillow, arms secured on padded arm boards at <90 degrees abduction, legs uncrossed, safety belt at thigh, tape over blanket over lower legs.
[2024-05-08] MEDS: BUPIVACAINE 0.25% (PF) VIAL 30 ML INJ (11:44)
[2024-05-08] MEDS: METHYLENE BLUE 50 MG/10 ML VIAL INJ (12:03)
--- NOTE | 2024-05-08 14:43 | PM.OP.1 ---
Operative Date/Time/Diagnoses Date of procedure: 05/08/24 Time of procedure: 19:54 Pre-op diagnosis: Right breast cancer Post-op diagnosis: same Procedure & Clinicians Procedure: Right mastectomy with sentinel lymph node biopsy, Left simple mastectomy Same procedure as scheduled: Yes Indications: Pilar is a 68-year-old woman who presented with architectural distortion within the right breast. She underwent core needle biopsy which demonstrated DCIS and she underwent lumpectomy for this 2 weeks ago. The pathology demonstrates invasive breast cancer with positive margins. She is here today for completion right mastectomy with sentinel lymph node biopsy and left simple mastectomy. Surgeon: Chetan Li Shelter Director: Javier Singh Anesthesia Type: General Operative Notes Findings: No uptake of radioactive tracer or methylene blue to the right axilla, suspect this is result of her recent lumpectomy No pathologically enlarged right lymph nodes Specimen(s): other (Right breast(short stitch superior long stitch lateral), right axillary content, left breast (short stitch superior long stitch lateral), left breast superior margin (short stitch superior long stitch lateral)) Estimated Blood Loss (mL): 100 Procedure in detail: Patient was brought to the operating room placed supine on the table. Bilateral lower extremity compression devices were applied. General anesthesia was induced and she was intubated with an endotracheal tube. She received 2 g of Ancef prior to the start of the operation. Time-out was performed. She was prepped and draped in sterile fashion. 2 mL of methylene blue diluted in saline were injected into the right areola and massaged into the tissue. An elliptical incision around the nipple areola complex was made with the knife. The subcutaneous tissue was divided with electrocautery. Skin flaps were raised to separate the breast tissue from the skin along the subdermal plexus. The dissection was extended superior to the clavicle, medial to the sternum, inferior the the inframamary fold and lateral to the anterior border of the latisimus dorsi. Next the breast tissue was from the underlying pectoralis fascia. The breast was passed off the field marked short stitch superior long stitch lateral. The right axillary tissue was bluntly dissected. There was no significant radioactive uptake within the axilla nor was there any methylene blue visible. I suspect this is a result of her recent lumpectomy. There was no pathologically enlarged lymph nodes. The axillary content was elevated out of the axilla using Allis and then this content was dissected out using electrocautery and passed off the field labeled right axillary content. A 19 [place] Donaldo drain was placed into the cavity and secured. The wound was copiously irrigated and homeostasis was ensured. The mastectomy was closed with 3 0 Vicryl for the subcutaneous tissue and the skin was closed with 4 0 Monocryl followed by the application of Dermabond. Attention was then turned towards the left breast. An elliptical incision around the nipple areola complex was made with the knife. The subcutaneous tissue was divided with electrocautery. Skin flaps were raised to separate the breast tissue from the skin along the subdermal plexus. The dissection was extended superior to the clavicle, medial to the sternum, inferior the the inframamary fold and lateral to the anterior border of the latisimus dorsi. Next the breast tissue was from the underlying pectoralis fascia. The breast was passed off the field marked short stitch superior long stitch lateral. There was some abnormal thickening of the superior flap of the left breast and therefore an additional specimen was resected labeled breast 2. Margin which was marked with a suture in the similar fashion. Hemostasis was obtained a 19 [place] Donaldo drain was placed into the cavity. The mastectomy was closed with Vicryl and then skin was closed with Monocryl followed by the application of Dermabond. The sponge in instrument count was correct. Patient tolerated procedure well she emerged from anesthesia was extubated and transferred to recovery room in stable condition. Complications: none Post-operative Condition: stable Disposition: observation
[2024-05-08] MEDS: DEXTROSE 5%-0.45% NS 1,000 ML 100 ML IV (15:24)
[2024-05-08] MEDS: ONDANSETRON 4 MG/2 ML INJ IV (15:24)
[2024-05-08] MEDS: CELECOXIB 200 MG CAPSULE PO (21:02)
[2024-05-09] VITALS: BP 116/61; PULSE 60; RESP 19; TEMP 36.2; O2SAT 95
[2024-05-09] MEDS: ACETAMINOPHEN 325 MG TABLET 650 MG PO (00:30)
[2024-05-09] MEDS: DEXTROSE 5%-0.45% NS 1,000 ML 100 ML IV (01:27)
[2024-05-09 04:00] VITALS: BP 113/47; PULSE 64; RESP 20; TEMP 36.2; O2SAT 98
[2024-05-09] MEDS: TRAMADOL 50 MG TABLET PO ×2 (05:09→08:48)
[2024-05-09 06:00] VITALS: O2SAT 98
[2024-05-09] MEDS: CELECOXIB 200 MG CAPSULE PO (08:49)
[2024-05-09] MEDS: ENOXAPARIN 40 MG/0.4 ML SYRINGE SUBCUT (08:49)
--- NOTE | 2024-05-09 10:37 | PC.NURSE ---
Assess- Patient is alert and oriented x4, she has an abdominal binder in place and two drains putting out bloody ss drainage. She had a double masectomy and was given 1 tramadol for discomfort. Patient will be discharging at 11am. Dr. zuleta see patient.
== END 2024-05-09 11:09 | disposition home or self-care (01) ==
LOC: OR 10:09 → AC 10:10
PROVIDERS: PCP Family Medicine; Referring Provider Surgery; Visit Provider Surgery
PROC: (CPT 19303; principal; 2024-05-08 11:45)
DX: Z17.0 Estrogen receptor positive status [ER+] (principal); C50.911 Malignant neoplasm of unspecified site of right female breast; C50.912 Malignant neoplasm of unspecified site of left female breast
CPT/HCPCS: 19303; 38525; 38792; 82962; A9541; J0330; J0690; J1100; J1650; J1885; J2405; J3010; Q9968

== ENCOUNTER → 2024-07-12 13:01 | Outpatient (CLI) | payer OTHER, SELFPAY ==
[2024-05-08 15:05] VITALS: BMI 28.3
--- NOTE | 2024-07-12 13:02 | DI.MRI.S_ITS ---
PROCEDURE: MR SHOULDER RT WO CON INDICATIONS: RT ROTATOR CUFF TEAR TECHNIQUE: Noncontrast oblique coronal T2 fast spin echo with fat saturation, oblique sagittal T1 spin echo and T2 fast spin echo with fat saturation, axial T1 spin echo and T2 fast spin echo with fat saturation through the shoulder. COMPARISON: None. FINDINGS: Image quality: Excellent. Rotator cuff: Low-grade articular and bursal surface partial thickness tear involving distal supraspinatus at its insertion on the humeral head is seen extending to musculotendinous junction. Distal infraspinatus tendinosis at its insertion on the humeral head is seen. Low-grade intrasubstance partial-thickness tear involving distal subscapularis is also noted. No full-thickness rotator cuff tendon rupture. Sagittal images demonstrate mild supraspinatus muscle atrophy. Bones and bursae: No bone marrow contusions or fractures. Moderate acromioclavicular joint and glenohumeral joint osteoarthritic changes are seen. Type 1 acromion, without an os acromiale. small amount of joint effusion and subacromial subdeltoid bursal fluid is noted, no gross loose bodies. Capsule and soft tissues: Labrum is grossly intact. The long head of the biceps tendon appears thickened intra-articularly. The rotator interval appears normal, without fibrosis. The coracohumeral ligament is normal in thickness. IMPRESSION: 1. Low-grade articular and bursal surface partial thickness tear involving distal supraspinatus extending to musculotendinous junction. Distal infraspinatus tendinosis. Low-grade intrasubstance partial-thickness tear involving distal subscapularis. No full-thickness rotator cuff tendon rupture. Mild supraspinatus muscle atrophy. 2. Moderate acromioclavicular joint and glenohumeral joint osteoarthritis. No acute fracture or dislocation. Small amount of joint fluid and subacromial subdeltoid bursal fluid, no gross loose bodies. 3. No evidence of focal labral tear. 4. Proximal long head of biceps tendinosis. Dictated by: Valdez Bhagat M.D. on 07/12/2024 at 16:23 Approved by: Valdez Bhagat M.D. on 07/12/2024 at 16:29
== END ==
LOC: MRI 13:01
PROVIDERS: PCP Family Medicine; Referring Provider Orthopaedic Surgery; Visit Provider Orthopaedic Surgery
DX: M75.111 Incomplete rotator cuff tear or rupture of right shoulder, not specified as traumatic (principal); M19.011 Primary osteoarthritis, right shoulder; M25.511 Pain in right shoulder
CPT/HCPCS: 73221

== ENCOUNTER → 2024-09-09 07:59 | Outpatient (CLI) | payer OTHER, SELFPAY ==
[2024-05-08 15:05] VITALS: BMI 28.3
[2024-09-09 09:20] LABS: Add Manual Diff / Slide Review NO; Basophils Absolute Auto 0 /uL (0-100); Basophils Percent Auto 0.7 % (0-2); Eosinophils Absolute Auto 100 /uL (0-450); Eosinophils Percent Auto 1.3 % (2-4); Hematocrit 45.1 % (36-46); Hemoglobin 15.3 g/dL (12.0-16.0); Lymphocytes Absolute Auto 1000 /uL (1100-4500); Lymphocytes Percent Auto 17.2 % (25-40); Mean Corpuscular HGB Conc 33.8 % (30-36); Mean Corpuscular Hemoglobin 30.2 PG (26-34); Mean Corpuscular Volume 89.3 fL (80-100); Monocytes Absolute Auto 600 /uL (0-900); Monocytes Percent Auto 10.4 % (3-14); Neutrophils Absolute Auto 3900 /uL (1500-7000); Neutrophils Percent Auto 70.4 % (50-75); Platelet Count 222 X10^3/uL (150-400); Red Blood Cell Count 5.05 X10^6/uL (4.0-5.2); Red Cell Distribution Width 13.9 % (11.6-14.8); White Blood Cell Count 5.6 X10^3/uL (4.5-11.0)
[2024-09-09 09:26] LABS: Hemoglobin A1C% w Est Avg Glu 5.9 % (4.0-6.0)
[2024-09-09 09:52] LABS: Alanine Aminotransferase 25 IU/L (<35); Albumin 4.1 g/dL (3.5-5.0); Albumin Globulin Ratio 2.2 (1.0-2.8); Alkaline Phosphatase 61 U/L (38-126); Aspartate Aminotransferase 35 IU/L (14-36); BUN Creatinine Ratio 26.6 (6-22); Bilirubin Total 0.7 mg/dL (0.2-1.3); Blood Urea Nitrogen 21 mg/dL (7-17); Calcium 9.3 mg/dL (8.4-10.2); Carbon Dioxide 30 mmol/L (22-32); Chloride 99 mmol/L (98-107); Cholesterol 226 mg/dL (140-199); Estimated Glomerular Filt Rate > 60 mL/min (>60); Globulin 1.9 g/dL (1.7-4.1); Glucose 112 mg/dL (80-110); HDL Cholesterol 57 mg/dL (40-60); HEMOLYSIS 16 (0-50); LDL Cholesterol Calculated 134 mg/dL (<100); Potassium 4.1 mmol/L (3.4-5.1); Sodium 135 mmol/L (137-145); Triglycerides 174 mg/dL (35-150)
== END ==
PROVIDERS: PCP Family Medicine; Referring Provider Family Medicine; Visit Provider Family Medicine
DX: I10 Essential (primary) hypertension (principal); E78.5 Hyperlipidemia, unspecified; R73.03 Prediabetes
CPT/HCPCS: 36415; 80053; 80061; 83036; 85025

== ENCOUNTER → 2025-02-13 07:53 | Outpatient (CLI) | payer OTHER, SELFPAY ==
[2024-05-08 15:05] VITALS: BMI 28.3
[2025-02-13 08:30] LABS: Add Manual Diff / Slide Review NO; Basophils Absolute Auto 0 /uL (0-100); Basophils Percent Auto 0.5 % (0-2); Eosinophils Absolute Auto 100 /uL (0-450); Eosinophils Percent Auto 1.5 % (2-4); Hematocrit 41.5 % (36-46); Hemoglobin 14.2 g/dL (12.0-16.0); Lymphocytes Absolute Auto 1200 /uL (1100-4500); Lymphocytes Percent Auto 26.7 % (25-40); Mean Corpuscular HGB Conc 34.1 % (30-36); Mean Corpuscular Volume 90.9 fL (80-100); Monocytes Absolute Auto 400 /uL (0-900); Monocytes Percent Auto 9.8 % (3-14); Neutrophils Absolute Auto 2800 /uL (1500-7000); Neutrophils Percent Auto 61.5 % (50-75); Platelet Count 235 X10^3/uL (150-400); Red Blood Cell Count 4.57 X10^6/uL (4.0-5.2); Red Cell Distribution Width 12.5 % (11.6-14.8); White Blood Cell Count 4.5 X10^3/uL (4.5-11.0)
[2025-02-13 08:52] LABS: Alanine Aminotransferase 27 IU/L (<35); Albumin 4.2 g/dL (3.5-5.0); Albumin Globulin Ratio 2.2 (1.0-2.8); Alkaline Phosphatase 68 U/L (38-126); Aspartate Aminotransferase 34 IU/L (14-36); BUN Creatinine Ratio 31.6 (6-22); Blood Urea Nitrogen 24 mg/dL (7-17); Calcium 9.7 mg/dL (8.4-10.2); Carbon Dioxide 30 mmol/L (22-32); Chloride 103 mmol/L (98-107); Cholesterol 208 mg/dL (140-199); Estimated Glomerular Filt Rate > 60 mL/min (>60); Globulin 1.9 g/dL (1.7-4.1); Glucose 123 mg/dL (70-99); HDL Cholesterol 45 mg/dL (40-60); HEMOLYSIS < 15 (0-50); LDL Cholesterol Calculated 109 mg/dL (<100); Potassium 4.4 mmol/L (3.4-5.1); Sodium 138 mmol/L (137-145); Total Protein 6.1 g/dL (6.3-8.2); Triglycerides 268 mg/dL (35-150)
[2025-02-13 09:21] LABS: TSH w/ Reflex to FT4 0.68 uIU/mL (0.47-4.68)
== END ==
PROVIDERS: PCP Family Medicine; Referring Provider Family Medicine; Visit Provider Family Medicine
DX: D05.10 Intraductal carcinoma in situ of unspecified breast (principal); R73.03 Prediabetes; E78.5 Hyperlipidemia, unspecified; I10 Essential (primary) hypertension
CPT/HCPCS: 36415; 80053; 80061; 84443; 85025